=== PATIENT | female | born 1965 | race Caucasian/White ===

== ENCOUNTER → 2017-01-20 | Outpatient (CLI) | payer OTHER ==
[~2017-01-20] MED LIST: ALBU1AER9 INH; AMLO-114 PO; FURO-85 PO; LISI40TA PO; MIRT15TA PO; SYMIN160 INH; WARF7.5T4 PO
[2017-01-20 13:11] LABS: INR 1.5 (0.9-1.1); PROTHROMBIN TIME (PATIENT) 15.9 SECONDS (9.0-12.0)
== END | disposition home or self-care (01) ==
LOC: C.LABPBG 10:56
PROVIDERS: ATTEND Family Medicine
DX: I82.409 Acute embolism and thrombosis of unspecified deep veins of unspecified lower extremity (principal)

== ENCOUNTER → 2017-02-04 | Outpatient (CLI) | payer OTHER ==
[2017-02-04 18:00] LABS: ALT/SGPT 24 U/L (12-78); BLOOD UREA NITROGEN 19 mg/dl (7-18); BUN/CREATININE RATIO 25.3 (10-20); CALCIUM 8.8 mg/dl (8.5-10.1); CARBON DIOXIDE 25 mmol/L (21-32); CHLORIDE 105 mmol/L (98-107); CHOLESTEROL 222 mg/dl (0-200); CREATININE 0.76 mg/dl (0.60-1.20); GLUCOSE 82 mg/dl (70-99); POTASSIUM 4.2 mmol/L (3.5-5.1); SODIUM 139 mmol/L (136-145); TRIGLYCERIDES 75 mg/dl (0-150); VERY LOW DENSITY LIPOPROT CALC 15 mg/dl
[2017-02-04 18:03] LABS: ALB/GLOB RATIO 0.8 (0.9-2); ALKALINE PHOSPHATASE 70 U/L (45-117); AST/SGOT 17 U/L (15-37); CHOLESTEROL/HDL RATIO 2.7; HDL CHOLESTEROL 81 mg/dl; LDL CHOLESTEROL CALCULATED 126 mg/dl
== END | disposition home or self-care (01) ==
LOC: C.LABPBG 11:50
PROVIDERS: ATTEND Family Medicine
DX: I82.409 Acute embolism and thrombosis of unspecified deep veins of unspecified lower extremity (principal)

== ENCOUNTER → 2017-03-19 | Outpatient (CLI) | payer OTHER ==
--- NOTE | 2017-03-20 05:47 | PAP/PSG TECHNICIAN REPORT ---
[facility] Deployment Technician Polysomnogram Report Study name: None Report date: 03/20/2017 Study date: 03/19/2017 Referring Physician: DR. ARIANA GRUBBS Name: ADILSON COLLADO Interpreting Physician: Lucina Herrera M.D. Date of : 1965 Deployment Technician: Marianne Ceballos RPSGT. Sex: Female Age: 51 StudyType: PSG Weight: 264.55 lbs Height: 51 years, Height 5' 8" BMI: 40.22 Medications: Lisinopril 40 mg, Amlodipine 10 mg, Pantoprazole 40 mg, Vitamin D3, 2000 iu, Zoloft 200 mg, Chantix 1 mg, Trazadone 200 mg, Jantoven 11.25-18.75 day Patient History 51 yr. old female here for a possible split night sleep study. Patient complains of severe snoring, odd dreams and witnessed apneas. Patient has a history of HTN, moderate COPD, Pulmonary embolism x4, depression, GERD, and pulmonary HTN. Patients Lucas Sleepiness Scale score is 11/24. Parameters Monitored NPSG: E1-M2, E2-M1, Fp1-M2, Fp2-M1, F3-M2, F4-M2, F4-M1, C3-M2, C4-M2, C4-M1, O1-M2, O2-M2, O2-M1, T3-M2, T4-M1, P3-M2, P4-M1, CHIN1, CHIN2, HR, EKG, Legs, PFLOW, SNOR, FLOW, CFLOW, Tidal Volume, THOR, ABDO, SpO2, PLTH, CPRESS, ETCO2 Wave, ETCO2, pH Sleep Architecture Sleep Stages Time at Lights Off 9:32:15 PM STAGES Time (min.) TST (%) Time at Lights On 5:35:45 AM Wake 95.0 -- Total Recording Time (TRT) 484.00 min. N1 31.0 8 Total Sleep Period (TSP) 454.5 min. N2 292.5 75 Total Sleep Time (TST) 388.5min. N3 29.5 8 Awake Time 95.0 min. REM 35.5 9 Wake after Sleep Onset 66.0 min. Sleep Efficiency (SE) 80 % Sleep Onset Latency (EVITA) 29.0 min. Number of Stage 1 Shifts None Awakenings 28 Stage Changes 89 Number of REM periods 1 REM 35.5 9 REM Latency 372.0 min. NREM 353.0 91 Body Position Analysis Supine Right Left Side Prone Vertical Total Sleep Time (min.) 194.4 130.0 98.0 228.00 0.0 0.0 Total Sleep Time (%) 41% 33% 25% 59 0% N/A% Total Sleep Time REM (min.) 35.5 0.0 0.0 None 0.0 0.0 Total Sleep Time NREM (min.) 125.0 130.0 98.0 None 0.0 0.0 Intermittent Wake (min.) 33.9 55.5 5.6 None 0.0 0.0 Total Sleep Period (%) 38% None None None None None Arousals Myoclonus (PLM) * Events Count Index Events Count Index Spontaneous 3 0 Events Awake (PLMW) 101 63.8 Respiratory 3 0.6 Events Asleep w/ Arousal (PLMA) 8 1.2 PLM 5 1 Events Asleep w/o Arousal (PLMS) 104 16.1 Snoring 5 1 Total Asleep 112 17.3 Total 16 2 Total 213 26 Respiratory Analysis * CA OA MA CH H RERA Total Count 0 1 0 0 87 0 88 Index 0.0 0.2 0.0 0 13.4 0 13.6 Mean Duration 0.0 10.0 0.0 0.00 20.3 0.0 20.2 Longest Duration 0.0 10.0 0.0 0.00 0.0 0.0 47.1 Respiratory Event Summary Total Supine ~Supine Right Left Prone REM NREM Apneas Count 1 1 0 0 0 N/A 1 0 Index 0.2 0 0 0.0 0.0 N/A 2 0 Hypopneas (4% Desat) Count 87 41 46 19 27 N/A 21 66 Index 13.4 15.3 12 8.8 16.5 N/A 35.5 11.2 Apneas & All Hypopneas Count 88 42 46 19 27 N/A 22 66 Index 13.6 16 12 9 17 N/A 37.2 11.2 Respiratory Events (Skating [employer]+All Hyp+RERA) Count 88 42 46 19 27 N/A 22 66 Index 13.6 16 12 8.8 16.5 N/A 37.2 11.2 Respiratory Related Arousal Count 3 42 1 1 0 N/A 0 4 Index 0.6 1 0 0 0 N/A 0 1 Snoring Analysis Supine Right Left Prone REM NREM Total Snore duration 72.2 min Snores count 1,031 1,188 515 N/A 328 2,406 2,734 Snore mean duration 1.6 Sec Snores index 385 548 315 N/A 554.4 409.0 422.2 TST with snoring (%) 18.6% Desaturation Event Summary: Minimum %SpO2 Event Count Mean/Min/Max Duration(sec.) Desaturation Index % Time In Bed > 90 116 19.5 / 5.5 / 55.3 30.3 48.1 86 - 90 70 16.1 / 5.5 / 50.0 17.4 50.4 81 - 85 3 15.8 / 7.3 / 26.0 28.9 1.3 76 - 80 1 7.3 / 7.3 / 7.3 64.9 0.2 71 - 75 0 N/A 0.0 0.0 66 - 70 0 N/A 0.0 0.0 61 - 65 0 N/A 0.0 0.0 56 - 60 0 N/A 0.0 0.0 51 - 55 0 N/A 0.0 0.0 < 50 0 N/A 0.0 0.0 Total REM NREM Awake <50% 0.0 min. 0.0 min. 0.0 min. 0.0 min. 51 - 60% 0.0 min. 0.0 min. 0.0 min. 0.0 min. 61 - 70% 0.0 min. 0.0 min. 0.0 min. 0.0 min. 71 - 80% 0.9 min. 0.9 min. 0.0 min. 0.0 min. 81 - 90% 247.3 min. 26.6 min. 198.6 min. 22.1 min. 91 - 100% 229.8 min. 7.9 min. 154.4 min. 67.4 min. Average 90 88 90 92 Minimum SpO2 76 76 84 82 Desaturation Event Index 17.9 47.3 14.4 20.8 # Desat. Events below 89% 108 28 61 19 Time(%) with Saturation below 89% 8.7 3.3 4.4 1.0 Time(min.) with Saturation below 89% 41.8 15.7 21.2 5.0 Time (mins) REM (mins) NREM (mins) % of TST SpO2 Below 90% 113 28 N85 28.2 SpO2 Below 88% 26 0 0 4 Heart Rate Analysis Min (bpm) Max (bpm) Average (bpm) Awake 41 113 70 NREM 54 91 65 REM 61 84 70 Overall 54 91 65 Supplemental O2 Values Minimum O2 level: None Value Start Time End Time Deployment Technician Comments MS. Collado slept in the right, left, and supine positions. Cardiac arrhythmia and PLMs noted. No bruxism noted. Snoring was noted and scored as a 4 on a scale of 0 through 5. (0=no snoring, 5=snoring loud enough to be heard through a closed door or down the steel way) MS. Collado awoke to use the restroom once during the night. MS. Collado stated, that was a normal night. The final report will be interpreted and signed by a sleep physician. The completed physician report will then be placed in the patient medical record. Therapy (cm H2O) 0 TIB (min.) 483.5 TST (min.) 388.5 Sleep Onset (min.) 29.0 REM Onset From Sleep (min.) 372.0 Sleep Efficiency % 80 Wakefulness (%) 20 Wakefulness (min.) 95.0 NREM 1 (%) 8 NREM 1 (min.) 31.0 NREM 2 (%) 75 NREM 2 (min.) 292.5 NREM 3 (%) 8 NREM 3 (min.) 29.5 REM (%) 9 REM (min.) 35.5 # Arousals 16 Arousal Index 2 # Snore 2,734 Snore Index 422.2 AHI 13.6 AHI Supine 16 AHI Non-Supine 12 NREM AHI 11.2 REM AHI 37.2 RDI 13.6 # Obstructive Apnea 1 # Central Apnea 0 # Mixed Apnea 0 # Hypopneas 87 RERAs 0 Total Respiratory Events 99 Time Below SpO2 89% (min.) 36.8 Mean NREM SpO2 (%) 90 Mean REM SpO2 (%) 88 Mean Sleep SpO2 (%) 90 Min NREM SpO2 (%) 84 Min REM SpO2 (%) 76 Position Supine (min.) 194.4 Position Non-supine (min.) 228.0 LM Index Sleep 17.3 LM Index NREM 18.7 LM Index REM 3.4 Mean Heart Rate (bpm) 65 Min Heart Rate (bpm) 54
--- NOTE | 2017-04-16 08:46 | POLYSOMNOGRAPH REPORT ---
REFERRING PHYSICIAN: Víctor Thakur DO INTERPRETING PHYSICIAN: Lucina Herrera MD HAND PRINTED CIRCUIT BOARD ASSEMBLER: Marianne Ceballos Ms. Collado is a 51-year-old female, sent for a possible split night sleep study. She complains of severe snoring, witnessed apneas and weird dreams. She has a history of moderate COPD, pulmonary embolism x4, hypertension, depression, GERD and pulmonary hypertension. Her Romulus Sleepiness Scale score on the evening of this study is 11. BMI is 40.22. Following the technical and digital specifications of the [place] [employer] (AASM) a standard diagnostic polysomnogram was performed monitoring EEG, EOG, EMG (chin and leg deviations), oxygen saturation, body position, digital video, respiratory effort and airflow. The sleep Stage and event scoring was based on the AASM Manual for the Scoring of Sleep and Associated Events 2007 edition. Apneas are defined as a drop in the peak thermal sensor excursion by >90% of baseline for at least 10 seconds. Hypopneas were scored using the 4% oxygen desaturation rule (4A-Medicare) and a decrease in the nasal pressure excursions by >30% of baseline for at least 10 seconds. Respiratory effort-related arousal (RERA's) is defined as a sequence of breaths lasting at least 10 seconds characterized by increasing respiratory effort or flattening of the nasal pressure waveform leading to an arousal from sleep when the sequence of breaths does not meet criteria for an apnea or hypopnea. Apnea Hypopnea index (AHI) is defined as the number of apneas and hypopneas occurring in an hour of sleep. Respiratory disturbance index (RDI) is defined as the number of apneas, hypopneas, and RERA's occurring in an hour of sleep. Ms. Collado's total sleep period time was 454.5 minutes. Total sleep time was 388.5 minutes. Sleep efficiency is 80%. Latency to sleep onset was 29 minutes with wake after sleep onset of 66 minutes. Total non-REM sleep time was 353 minutes. She spent 8% of that time in N1 sleep, 75% in N2 sleep and 8% in N3 sleep. REM latency was 372 minutes. Total REM sleep time was 35.5 minutes or 9% of total sleep time. There were 16 cortical arousals from sleep. Three of these arousals were spontaneous, 3 were due to respiratory events, 5 due to periodic limb movements of sleep and 5 were due to snoring. There were 112 periodic limb movements noted on this test. Limb movement index was 17.3. Limb movement with arousal index was 1.2. There was no central, one obstructive and no mixed apneas on this test. There were 87 hypopneas and no RERA. Apnea-hypopnea index was 13.6, consistent with mild sleep apnea. Supine AHI was 16 and REM AHI was 37.2. There were 2734 snoring events recorded. Total sleep time with snoring was 18.6%. Mean saturation was 90% with desaturations with respiratory events of 76%. Saturations were less than 89% for 41.8 minutes of recorded time. There was no cardiac ectopy noted on this study. Heart rates ranged from a low of 54 beats per minute to a high of 91 beats per minute. IMPRESSION AND PLAN: A 51-year-old female, with evidence of mild sleep apnea, worse in supine sleep than REM sleep as well significant nocturnal hypoxemia and loud snoring on this test. 1. This patient would likely benefit from positive airway pressure therapy. She should return to the sleep lab for a full night titration and then based on those results be started on equipment at home. A download from her machine should be reviewed in one month; both to check compliance as well as AHI and further pressure adjustments can occur at that time. 2. Should this patient be unwilling or unable to tolerate CPAP therapy, she should be referred to the ear, nose and throat or oral surgery/dental medicine (if appropriate) to discuss alternative treatments for sleep disorder breathing.
== END | disposition home or self-care (01) ==
LOC: C.NEUR 21:00
PROVIDERS: ATTEND Internal Medicine Cardiovascular Disease
DX: G47.30 Sleep apnea, unspecified (principal); G47.36 Sleep related hypoventilation in conditions classified elsewhere; R06.83 Snoring; I10 Essential (primary) hypertension; Z68.41 Body mass index [BMI] 40.0-44.9, adult; I26.99 Other pulmonary embolism without acute cor pulmonale

== ENCOUNTER → 2017-06-19 | Outpatient (CLI) | payer OTHER ==
--- NOTE | 2017-06-19 15:08 | DIAGNOSTIC IMAGING REPORT ---
LUMBAR SPINE MIN 4 VIEWS HISTORY: Pain LOWER BACK PAIN RIGHT KNEE PAIN COMPARISON: None. FINDINGS: There is no fracture. Moderate degenerative disc change throughout the entire lumbar region. Mild positional scoliosis. No evidence for compression deformity. Inferior vena caval filter in position at the L 3. L4 level. Nonobstructive bowel pattern. IMPRESSION: Moderate degenerative change. Scoliosis. No acute process. The above report was generated using voice recognition software. It may contain grammatical, syntax or spelling errors. Electronically signed by: Isaac Garcia M.D. 06/19/2017 3:07 PM Dictated Date/Time: 06/19/2017 3:06 PM
--- NOTE | 2017-06-19 15:08 | DIAGNOSTIC IMAGING REPORT ---
RIGHT KNEE RADIOGRAPHS WITH COMPARISON STANDING AP RADIOGRAPH OF THE LEFT KNEE CLINICAL HISTORY: Right knee pain. COMPARISON: Left knee radiographs November 16, 2015. FINDINGS: Comparison standing AP radiograph of the left knee demonstrates anatomic alignment of the total left knee arthroplasty. No periprosthetic fracture or lucency. Positioning on the tunnel view is suboptimal. There is moderate medial compartment joint space narrowing within the right knee. There is no fracture or joint effusion. There is no suspicious osseous lesion. There is a questionable 1.2 cm subchondral lucency projecting over the tibial spines. IMPRESSION: 1. No acute fracture or joint effusion of the right knee. 2. Moderate medial compartment joint space narrowing of the knee. 3. Questionable 1.2 cm subchondral lucency projecting over the tibial spines. Electronically signed by: Niall Hinton M.D. 06/19/2017 3:07 PM Dictated Date/Time: 06/19/2017 3:04 PM
== END | disposition home or self-care (01) ==
LOC: C.RDSM 13:46
PROVIDERS: ATTEND Family Medicine
DX: M25.561 Pain in right knee (principal); M47.816 Spondylosis without myelopathy or radiculopathy, lumbar region; M41.9 Scoliosis, unspecified

== ENCOUNTER → 2017-09-22 | Outpatient (CLI) | payer OTHER | END | disposition home or self-care (01) | LOC: C.PAPS 10:06 | PROVIDERS: ATTEND Obstetrics & Gynecology | DX: Z12.4 Encounter for screening for malignant neoplasm of cervix (principal) ==

== ENCOUNTER 2017-12-02 12:15 | Inpatient (IN) | payer OTHER ==
[~2017-12-02] VITALS: Ht 167.6 cm; Wt 130.2 kg
[2017-12-02 13:15] LABS: BASO % 0.8 %; BASO ABS # 0.05 K/uL (0-0.2); EOS % 2.3 %; EOS ABS # 0.15 K/uL (0-0.5); HEMATOCRIT 31.2 % (37-47); HEMOGLOBIN 9.2 g/dL (12.0-16.0); IG# 0.02 K/uL (0.00-0.02); LYMPH % 28.4 %; LYMPH ABS # 1.88 K/uL (1.2-3.4); MEAN CELL VOLUME 67.8 fL (80-100); MEAN CORPUSCULAR HGB CONC 29.5 g/dl (32-36); MEAN PLATELET VOLUME 9.3 fL (7.4-10.4); MONO % 5.7 %; MONO ABS # 0.38 K/uL (0.11-0.59); NEUT % 62.5 %; NEUT ABS # 4.15 K/uL (1.4-6.5); PLATELET COUNT 255 K/uL (130-400); RED CELL DISTRIBUTION WIDTH CV 20.8 % (11.5-14.5); RED CELL DISTRIBUTION WIDTH SD 51.1 fL (36.4-46.3); WHITE BLOOD COUNT 6.63 K/uL (4.8-10.8)
[2017-12-02 13:28] LABS: PTT PATIENT 37.9 SECONDS (21.0-31.0)
[2017-12-02 13:42] LABS: CALCIUM 8.7 mg/dl (8.5-10.1); CREATININE 0.84 mg/dl (0.60-1.20)
--- NOTE | 2017-12-02 13:42 | DIAGNOSTIC IMAGING REPORT ---
TWO VIEW CHEST CLINICAL HISTORY: Atypical chest pain. FINDINGS: PA and lateral chest radiographs are compared to chest x-ray and chest CT dated 09/19/2015. The heart is top mildly enlarged. The mediastinal contour is within normal limits. Small right pleural effusion is noted. The lungs and pleural spaces are otherwise clear. There is no pneumothorax. The bony thorax appears intact. IMPRESSION: 1. Mild cardiomegaly without radiographic evidence of congestive failure. 2. A small right pleural effusion is noted. Electronically signed by: Soto Barrett M.D. 12/02/2017 1:40 PM Dictated Date/Time: 12/02/2017 1:39 PM
--- NOTE | 2017-12-02 13:43 | DIAGNOSTIC IMAGING REPORT ---
R KNEE 1 OR 2 VIEWS ROUTINE HISTORY: 51 years-old Female eval for fx acute right knee pain status post recent injury COMPARISON: Right knee radiographs 06/19/2017 TECHNIQUE: 2 views of the right knee FINDINGS: Previously discussed subcortical lucency noted beneath the medial tibial spine is again seen suggesting a subcortical cyst. Mild lateral compartment with moderate medial and mild to moderate patellofemoral compartment osteoarthritis. Small joint effusion. No acute fracture, subluxation or osteochondral defect identified. IMPRESSION: 1. Small joint effusion without acute fracture or subluxation. 2. Tricompartmental osteoarthritis, most pronounced within the medial compartment where there is moderate disease. The above report was generated using voice recognition software. It may contain grammatical, syntax or spelling errors. Electronically signed by: Mark Caldera M.D. 12/02/2017 1:42 PM Dictated Date/Time: 12/02/2017 1:39 PM
--- NOTE | 2017-12-02 13:49 | DIAGNOSTIC IMAGING REPORT ---
THORACIC SPINE 3 VIEWS ROUTINE HISTORY: Trauma. Pain. eval fro fx COMPARISON: None. FINDINGS: There is no fracture. No subluxation. Moderate degenerative disc changes throughout. No evidence for a acute compression deformity. IMPRESSION: 1. No acute bony abnormality. 2. Mild scoliosis. 3. Mild degenerative disc change. The above report was generated using voice recognition software. It may contain grammatical, syntax or spelling errors. Electronically signed by: Isaac Garcia M.D. 12/02/2017 1:47 PM Dictated Date/Time: 12/02/2017 1:47 PM
--- NOTE | 2017-12-02 13:51 | DIAGNOSTIC IMAGING REPORT ---
LUMBAR SPINE 5 VIEWS CLINICAL HISTORY: Fall several weeks ago. Chronic low back pain. FINDINGS: Five views of the lumbar spine are compared to study dated 06/19/2017. The skeletal structures are osteopenic. There is no radiographic evidence of fracture or malalignment. Vertebral body height and alignment are maintained at the lumbar spine. The transverse and spinous processes appear intact. Anterior osteophytes are seen throughout. Mild facet arthropathy is noted in the lower lumbar region. There is no evidence of spondylolysis. There is mild disc space narrowing at L2-L3 with associated endplate sclerosis. Mild disc space narrowing is seen throughout the remainder of the lumbar spine. The visualized bony pelvis appears intact. Mild sclerotic change is noted in the sacroiliac joints. An IVC filter is in place. There is no evidence of bowel obstruction. IMPRESSION: 1. No acute bony abnormality seen involving the lumbar spine. 2. Osteopenia and spondylotic change as above. Dictated: 12/02/2017 1:40 PM Transcribed: 12/02/2017 1:51 PM POLO_Vladislav Electronically signed by: Soto Barrett M.D. 12/02/2017 2:10 PM Dictated Date/Time: 12/02/2017 1:40 PM
--- NOTE | 2017-12-02 14:01 | DIAGNOSTIC IMAGING REPORT ---
ULTRASOUND R VENOUS DOPP LOWER EXT UNILAT CLINICAL HISTORY: Right leg pain and swelling COMPARISON STUDY: No previous studies for comparison. FINDINGS: No thrombus is visualized in the common femoral or superficial femoral vein. There is fibrin stranding within the popliteal vein. This is felt to be chronic. There is age-indeterminate thrombus involving one of the paired peroneal veins. The anterior tibial and posterior tibial veins appear patent. IMPRESSION: 1. Age-indeterminate calf thrombus involving one of 2 paired peroneal veins 2. Chronic fibrin stranding within the popliteal vein Electronically signed by: Robin Dodson M.D. 12/02/2017 2:00 PM Dictated Date/Time: 12/02/2017 1:59 PM
[2017-12-02] MEDS ORDERED: VNTHFA/IN INH (14:33)
[2017-12-02] MEDS ORDERED: BUSP15TA70 PO (14:33)
[2017-12-02] MEDS ORDERED: TRAZ100T29 PO (14:33)
[2017-12-02] MEDS ORDERED: SERT-234 PO (14:33)
[2017-12-02] MEDS ORDERED: LISI40TA PO (14:35)
[2017-12-02] MEDS ORDERED: FURO-85 PO (14:35)
[2017-12-02] MEDS ORDERED: OPTIRAY 320 IV PRN (14:45)
[2017-12-02] MEDS ORDERED: MAGNESIUM HYDROXIDE SUSP 30 ML UDC PO PRN (15:30)
[2017-12-02] MEDS: ALBUTEROL HFA 8 GM INHALER INH SCH ×2 (15:30→21:39)
[2017-12-02] MEDS ORDERED: ACETAMINOPHEN 325 MG TAB PO PRN (15:30)
[2017-12-02] MEDS ORDERED: FUROSEMIDE 20 MG TAB PO PRN (15:30)
[2017-12-02] MEDS ORDERED: ALUMINUM/MAGNESIUM/SIMETH (MAALOX MAX) 30 ML UDC PO PRN (15:30)
[2017-12-02] MEDS ORDERED: ONDANSETRON INJ 2 MG/ML 2 ML VIAL IV PRN (15:30)
--- NOTE | 2017-12-02 15:55 | DIAGNOSTIC IMAGING REPORT ---
(CHEST FOR PE) ANGIO WITH CT DOSE: 660.59 mGy.cm HISTORY: 51 years-old Female presents with acute difficulty breathing TECHNIQUE: Multiple CTA images of the chest were obtained after the intravenous administration of ml Optiray 320. Coronal and sagittal MIPS were obtained from the axial data set and were submitted for review. A dose lowering technique was utilized adhering to the principles of ALARA. COMPARISON: CTA of the chest 09/19/2015, venous Doppler study 12/02/2017. FINDINGS: CTA: Moderate multichamber cardiac enlargement. No pericardial effusion. Thoracic aorta is not well opacified. There is mild fusiform dilation of the ascending thoracic aorta beginning distal to the sinotubular junction, 4.2 x 4.3 cm in AP and transverse dimension, previously 4.2 x 4.2 cm on study dated 09/19/2015. No dissection identified. No significant atherosclerotic plaquing. The pulmonary arterial tree is opacified to level of the segmental branches. There are several linear peripheral nonocclusive filling defects noted within the pulmonary arterial tree involving segmental branches of the right lower lobe as seen on image 78 series 4, segmental branches of the right upper lobe seen on image 162 series 4 and also within segmental branches of the left lower lobe as seen on image 98 series 4. There may also be subtle filling defects noted within segmental branches of the superior segment lingula as seen on image [address] CHEST: Heterogeneous multinodular thyroid with largest nodule measuring 1.5 cm on the left. No definite pathologic adenopathy identified. Subsegmental linear consolidative and groundglass bibasilar opacities suggest atelectasis. Mild upper lobe predominant centrilobular emphysema. No pneumothorax or pleural effusion. No definite pulmonary infarction identified. No acute abnormality of the imaged upper abdomen. Soft tissues are unremarkable. Bones appear intact. Multilevel endplate degenerative changes. IMPRESSION: 1. Multiple small linear nonocclusive pulmonary emboli involve segmental branches bilaterally as above. 2. Mild emphysema. 3. Mild subsegmental bibasilar atelectasis without large pulmonary infarction identified. 4. Cardiomegaly with fusiform dilation of the ascending thoracic aorta beginning distal to the sinotubular junction, 4.2 x 4.3 cm. The above report was generated using voice recognition software. It may contain grammatical, syntax or spelling errors. Electronically signed by: Mark Caldera M.D. 12/02/2017 3:54 PM Dictated Date/Time: 12/02/2017 3:46 PM
--- NOTE | 2017-12-02 16:02 | History and Physical ---
History & Physical Date & Time of Service: Dec 02, 2017 at 15:43 Chief Complaint: Trouble Breathing,Leg Pain Primary Care Physician: Zenobia Ogden M.D. History of Present Illness Source: patient Ms. Collado is a 51 y/o female with PMHx of Factor V Leiden, Numerous DVTs, Multiple PEs, S/P IVC Filter, HTN, COPD, DJD of Multiple Sites who presents to the ED c/o persistent RLE pain, worsening edema, and progressive GLASER x 1 1/2 months. Patient states that approx 1 1/2-2 months ago she sustained a fall with resultant twisted ankle and falling on her R hip and leg. She does report chronic knee pain due to DJD and states she is due to have her R knee replaced. However, after the fall she states the quality of her pain seemed to be different as her pain is more jagging and aching. She states the pain radiates from behind the R knee and up the thigh but cannot delineate the path. She does not seem to be bothered by hip pain. She does state her mid-low back is bothersome mostly with standing but denies leg weakness, saddle paresthesias, or loss of bowel/bladder and this too worsened since her fall. She has had multiple DVTs and PEs due to her Factor V and previously followed with Dr. Kevin. She reports she is normally therapeutic if not supratherapeutic on warfarin. INRs reviewed showing only one subtherapeutic at 1.9 in 2016. She reports that she has noticed progressive GLASER and central CP that radiates to the collarbone and shoulder. States this pain feels like the sensation after laparoscopic surgery due to inflation. She states this chest pain is intermittent and comes on sporadically but does worsen with exertion. She reports she does have pleuritic CP with pain "deep in the chest" just under her breasts b/l. She does report stress testing x 1 year ago and was told she had a valve that would not completely close but could not give further details. States she also has an intermittent arrhythmia discovered on Holter but could not give details. She is followed by Dr. Thakur. She also states she notices the chest pain changes in consistency with eating. She believes she does have some GERD/GI components and feels that her food sometimes gets stuck in her throat. She has had issues with nausea and vomiting frequently after eating x 3 + weeks. She still has her GB. She does feel she retains fluids mostly in her abdomen and legs. Denies known liver disease. She states the RLE is bigger than the LLE but appears rather equal and supports more of a lymphedema picture. She is currently therapeutic on Coumadin at 2.0. RLE with age indeterminate DVT with evidence of also chronic findigs with no prior studies to compare. Even though she has a IVC filter, therapeutic on Coumadin, and unremarkable D-Dimer. CT chest reveals b/l PEs which appear more extensive compared to imaging of 2015. Past Medical/Surgical History Medical Problems: (1) DVT (deep venous thrombosis) Status: Resolved (2) Factor 5 Leiden mutation, heterozygous Status: Chronic (3) Factor 5 Leiden mutation, heterozygous Status: Chronic (4) Hypertension Status: Chronic (5) Pulmonary embolism Status: Resolved Family History Diabetes mellitus Factor V Leiden Hypertension Social History Smoking Status: Current Every Day Smoker Alcohol Use: socially Drug Use: none Marital Status: Housing status: lives with significant other Allergies Coded Allergies: No Known Allergies (Unverified , 12/02/17) Home Medications Scheduled Albuterol Hfa (Ventolin Hfa), 2-4 PUFFS INH Q6H Buspirone Hcl (Buspar), 1 TAB PO BID Lisinopril (Zestril), 40 MG PO DAILY Sertraline (Zoloft), 200 MG PO DAILY Trazodone Hcl (Trazodone), 100 MG PO HS Warfarin Sod (Jantoven), 11.25-18.75 MG PO UD Scheduled PRN Furosemide (Lasix), 20 MG PO for FLUID RETENTION Review of Systems Constitutional: No fever, No chills ENT: + trouble swallowing ("feels like a lump in my throat"), No sore throat Respiratory: + cough, + sputum, + dyspnea on exertion, No dyspnea at rest Cardiovascular: + chest pain (intermittent with radiation into L shoulder) Abdomen: + pain (intermittent RUQ), + nausea (frequently with eating), + vomiting (frequently with eating), No diarrhea, No constipation, No GI bleeding Musculoskeletal: + joint pain (chronic low back pain), + swelling (R>L swelling of lower extremities), + problem reported (pain behind right knee extending upwards into thigh - feels diffusely and cant identify a specific tract it follows) Genitourinary - Female: No dysuria Neurologic: No numbness/tingling Hematologic / Lymphatic: No abnormal bleeding/bruising Integumentary: No rash Physical Exam Vital Signs Date Time Temp Pulse Resp B/P (MAP) Pulse Ox O2 Delivery O2 Flow Rate FiO2 12/02/17 14:25 66 12/02/17 14:25 96 Room Air 12/02/17 14:15 79 16 177/105 96 Room Air 12/02/17 12:23 36.5 69 20 199/108 94 Room Air General Appearance: WD/WN, no apparent distress, + obese Head: normocephalic, atraumatic Eyes: sclerae normal ENT: hearing grossly normal Neck: supple, no JVD, trachea midline Respiratory/Chest: lungs clear, no respiratory distress, no accessory muscle use, + decreased breath sounds (bases b/l) Cardiovascular: regular rate, rhythm, no gallop, no murmur Abdomen/GI: normal bowel sounds, soft, + tenderness (with deep palpation of RUQ (negative bustillos's sign) and epigastric region) Back: no CVA tenderness Extremities/Musculoskelatal: no calf tenderness, normal capillary refill, + swelling (appears lymphedema-like and non-pitting - reporting R > L however appears largely similar in comparison; surgical incision to L knee well- approximated and well healed) Neurologic/Psych: alert, oriented x 3 Skin: normal color, warm/dry Diagnostics Laboratory Results Results Past 24 Hours Test 12/02/17 12:55 12/02/17 12:59 Range/Units White Blood Count 6.63 4.8-10.8 K/uL Red Blood Count 4.60 4.2-5.4 M/uL Hemoglobin 9.2 12.0-16.0 g/dL Hematocrit 31.2 37-47 % Mean Corpuscular Volume 67.8 80-100 fL Mean Corpuscular Hemoglobin 20.0 25-34 pg Mean Corpuscular Hemoglobin Concent 29.5 32-36 g/dl Platelet Count 255 130-400 K/uL Mean Platelet Volume 9.3 7.4-10.4 fL Neutrophils (%) (Auto) 62.5 % Lymphocytes (%) (Auto) 28.4 % Monocytes (%) (Auto) 5.7 % Eosinophils (%) (Auto) 2.3 % Basophils (%) (Auto) 0.8 % Neutrophils # (Auto) 4.15 1.4-6.5 K/uL Lymphocytes # (Auto) 1.88 1.2-3.4 K/uL Monocytes # (Auto) 0.38 0.11-0.59 K/uL Eosinophils # (Auto) 0.15 0-0.5 K/uL Basophils # (Auto) 0.05 0-0.2 K/uL RDW Standard Deviation 51.1 36.4-46.3 fL RDW Coefficient of Variation 20.8 11.5-14.5 % Immature Granulocyte % (Auto) 0.3 % Immature Granulocyte # (Auto) 0.02 0.00-0.02 K/uL Hypochromasia PRESENT Anisocytosis PRESENT Microcytosis PRESENT Prothrombin Time 20.6 9.0-12.0 SECONDS Prothromb Time International Ratio 2.0 0.9-1.1 Activated Partial Thromboplast Time 37.9 21.0-31.0 SECONDS Partial Thromboplastin Ratio 1.5 Sodium Level 135 136-145 mmol/L Potassium Level 4.0 3.5-5.1 mmol/L Chloride Level 102 98-107 mmol/L Carbon Dioxide Level 28 21-32 mmol/L Anion Gap 5.0 3-11 mmol/L Blood Urea Nitrogen 21 7-18 mg/dl Creatinine 0.84 0.60-1.20 mg/dl Est Creatinine Clear Calc Drug Dose 99.0 ml/min Estimated GFR () 93.3 Estimated GFR (Non- 80.5 BUN/Creatinine Ratio 24.9 10-20 Random Glucose 90 70-99 mg/dl Calcium Level 8.7 8.5-10.1 mg/dl Bedside D-Dimer 73 0-450 ng/mlFEU Bedside Troponin I < 0.030 0-0.045 ng/ml Diagnostic Radiology ULTRASOUND R VENOUS DOPP LOWER EXT UNILAT FINDINGS: No thrombus is visualized in the common femoral or superficial femoral vein. There is fibrin stranding within the popliteal vein. This is felt to be chronic. There is age-indeterminate thrombus involving one of the paired peroneal veins. The anterior tibial and posterior tibial veins appear patent. IMPRESSION: 1. Age-indeterminate calf thrombus involving one of 2 paired peroneal veins 2. Chronic fibrin stranding within the popliteal vein R KNEE 1 OR 2 VIEWS ROUTINE FINDINGS: Previously discussed subcortical lucency noted beneath the medial tibial spine is again seen suggesting a subcortical cyst. Mild lateral compartment with moderate medial and mild to moderate patellofemoral compartment osteoarthritis. Small joint effusion. No acute fracture, subluxation or osteochondral defect identified. IMPRESSION: 1. Small joint effusion without acute fracture or subluxation. 2. Tricompartmental osteoarthritis, most pronounced within the medial compartment where there is moderate disease. TWO VIEW CHEST FINDINGS: PA and lateral chest radiographs are compared to chest x-ray and chest CT dated 09/19/2015. The heart is top mildly enlarged. The mediastinal contour is within normal limits. Small right pleural effusion is noted. The lungs and pleural spaces are otherwise clear. There is no pneumothorax. The bony thorax appears intact. IMPRESSION: 1. Mild cardiomegaly without radiographic evidence of congestive failure. 2. A small right pleural effusion is noted. (CHEST FOR PE) ANGIO WITH FINDINGS: CTA: Moderate multichamber cardiac enlargement. No pericardial effusion. Thoracic aorta is not well opacified. There is mild fusiform dilation of the ascending thoracic aorta beginning distal to the sinotubular junction, 4.2 x 4.3 cm in AP and transverse dimension, previously 4.2 x 4.2 cm on study dated 09/19/2015. No dissection identified. No significant atherosclerotic plaquing. The pulmonary arterial tree is opacified to level of the segmental branches. There are several linear peripheral nonocclusive filling defects noted within the pulmonary arterial tree involving segmental branches of the right lower lobe as seen on image 78 series 4, segmental branches of the right upper lobe seen on image 162 series 4 and also within segmental branches of the left lower lobe as seen on image 98 series 4. There may also be subtle filling defects noted within segmental branches of the superior segment lingula as seen on image [address] CHEST: Heterogeneous multinodular thyroid with largest nodule measuring 1.5 cm on the left. No definite pathologic adenopathy identified. Subsegmental linear consolidative and groundglass bibasilar opacities suggest atelectasis. Mild upper lobe predominant centrilobular emphysema. No pneumothorax or pleural effusion. No definite pulmonary infarction identified. No acute abnormality of the imaged upper abdomen. Soft tissues are unremarkable. Bones appear intact. Multilevel endplate degenerative changes. IMPRESSION: 1. Multiple small linear nonocclusive pulmonary emboli involve segmental branches bilaterally as above. 2. Mild emphysema. 3. Mild subsegmental bibasilar atelectasis without large pulmonary infarction identified. 4. Cardiomegaly with fusiform dilation of the ascending thoracic aorta beginning distal to the sinotubular junction, 4.2 x 4.3 cm. EKG Poor data quality, interpretation may be adversely affected Normal sinus rhythm Normal ECG When compared with ECG of 19-SEP-2015 14:39, No significant change was found Confirmed by Celesitne Zavala ([id number]) on 12/02/2017 1:58:22 PM Impression Assessment and Plan Ms. Collado is a 51 y/o female with PMHx of Factor V Leiden, Numerous DVTs, Multiple PEs, S/P IVC Filter, HTN, COPD, DJD of Multiple Sites who presents to the ED c/o persistent RLE pain, worsening edema, and progressive GLASER x 1 1/2 months. B/L Pulmonary Embolism and Age Indeterminant RLE DVT - Possible Coumadin Failure - Complicated by Factor V Leiden - Patient has had multiple DVTs and PEs due to her factor V Leiden; she is largely therapeutic on Coumadin with only one subtherapeutic reading at 1.9 in September 2017; she does report chronic joint pain did notice her right knee pain appear different after her fall approximately 2 months ago - No RLE ultrasound for comparison but evidence of chronic findings of DVT and age indeterminate DVT - She does have IVC filter and d-dimer was largely unremarkable - however CT reveals bilateral pulmonary embolism with comparison to image in 2014 that shows progression - patient does report pleuritic chest pain and GLASER - We'll hold Coumadin and start heparin drip - will consult hematology and appreciate further recommendations for long-term anticoagulation - Obtain updated echo - Ventolin 2 puffs Q6H Chest Pain: PE vs GERD versus Musculoskeletal vs ACS versus Multifactorial - Admit to telemetry for cardiac monitoring and trend troponins - Reporting worsening of chest pain with eating and associated occasional RUQ abdominal pain, nausea, and frequent vomiting with meals - ultrasound reveals mild hepatic steatosis but no gallbladder abnormalities - Had stress test approximately one year ago performed by Dr. Thakur - she reports issues with a valve not fully closing - could consider outpatient stress testing - She reports being on an acid reducing medication that starts with P but is unsure of the medication but states it's 20 mg in the a.m. - will incorporate Pepcid 20 mg daily as she states acid reducers seem to help her chest pain HTN and Lower Extremity Edema (Likely Lymphedema): Hypertensive - Patient was previously on Norvasc 10 mg daily - which may have contributed to her lower extremity edema - however lower extremity edema lymphedema - Lasix 20 mg daily as needed for fluid retention and Lisinopril 40 mg daily Anxiety/Depression: - BuSpar 15 mg BID, Zoloft 200 mg daily, and trazodone 100 mg daily DVT Prophylaxis: Heparin drip Code Status: FULL RESUSCITATION Disposition: - Possible need for alternative long-term anticoagulation I personally interviewed and examined the patient. I agree with history of present illness and physical exam mentioned above, I also performed my own history taking and examination. Past medical history and review of system has been obtained by myself I reviewed all pertinent labs and studies Reviewed current medications I discussed and formulated of the assessment and plan mentioned above. Please refer to the Summary mentioned below. 51-year-old female with coagulopathy secondary to factor V Leiden, due to multiple DVTs and PEs in the past recent has IVC filter and chronically on Coumadin. Presented to the hospital with chest pain, right lower extremity pain, ultrasound lower extremity and CTA revealed DVT/multiple small referral PEs Appears that patient either failed Coumadin, or Coumadin became subtherapeutic when the patient developed all these blood clots, as per patient the pain started about 2 months ago. Currently started on heparin drip, INR is 2, will consult food service specialist to discuss with patient all options. General Appearance: not in acute distress Eyes: normal Sclerae, extraocular muscle intact ENT: hearing grossly normal Neck: supple Respiratory/Chest: normal air entry bilateral ,no respiratory distress, no accessory muscle use Cardiovascular: regular rate, rhythm, + systolic murmur Abdomen: non tender, soft, no masses Extremities: no edema Neurologic/Psychiatric: Awake alert oriented times place and person moves all extremities sensation intact cranial nerves II-12 appear to be intact Skin: normal color, warm/dry, no rash Sky Cox MD, [facility] Level of Care Telemetry Resuscitation Status FULL RESUSCITATION VTE Prophylaxis VTE Risk Assessment Done? Y/N: Yes Risk Level: Moderate Given or contraindicated: Warfarin (Coumadin)
[2017-12-02] MEDS ORDERED: IV FLUIDS COMPLETED PRN (16:30)
[2017-12-02] MEDS ORDERED: OXYCODONE/ACETAMINOPHEN 5-325 TAB PO STA (16:33)
[2017-12-02] MEDS ORDERED: HEPARIN 25000 UNIT/500 ML D5W ONE (17:12)
[2017-12-02] MEDS: OXYCODONE/ACETAMINOPHEN 5-325 TAB PO PRN (17:50)
--- NOTE | 2017-12-02 18:05 | DIAGNOSTIC IMAGING REPORT ---
GALLBLADDER-ABD LIMITED CLINICAL HISTORY: 51 years-old Female presenting with RUQ abd pain - worse with eating. TECHNIQUE: Real-time grayscale and limited color Doppler ultrasound imaging of the abdomen limited to the right upper quadrant was performed. COMPARISON: CT from 09/19/2015. FINDINGS: Pancreas: Visualized portions of the pancreatic head and body normal. Liver: Mildly hyperechogenic parenchyma, although the right hemidiaphragm remains visible, likely indicating mild steatosis. The liver measures 19.9 cm in maximal sagittal dimension. No sonographic evidence of hepatic mass. Main portal vein patent with normal directional flow. Biliary: No intrahepatic biliary ductal dilatation. Common bile duct measures up to 4 mm in diameter. Gallbladder: No evidence of gallstones, gallbladder wall thickening, gallbladder distention, or pericholecystic fluid or inflammatory change. Right kidney: Normal in appearance. No hydronephrosis. Ascites: None. IMPRESSION: 1. Mild hepatic steatosis. 2. No cholelithiasis or biliary ductal dilatation. Electronically signed by: Jimmy Pérez M.D. 12/02/2017 6:03 PM Dictated Date/Time: 12/02/2017 6:02 PM
[2017-12-02] MEDS ORDERED: HydrALAZINE HCL 20 MG/ML VIAL IV. PRN (18:15)
[2017-12-02 18:30] VITALS: BP 147/95; PULSE 65; TEMP 36.5; O2SAT 96; Ht 167.6 cm; Wt 130.2 kg
--- NOTE | 2017-12-02 19:07 | EMERGENCY ROOM VISIT NOTE ---
History Report prepared by Bryant: Erika Roldan Under the Supervision of: Dr. Juan Shah M.D. First contact with patient: 12:27 Chief Complaint: SHORTNESS OF BREATH Stated Complaint: TROUBLE BREATHING,LEG PAIN History of Present Illness The patient is a 51 year old female who presents to the Emergency Room with complaints of persistent right leg pain starting 1.5 months ago. The patient was sent to the ED after seeing her PCP today. The patient twisted her foot and fell 1.5 months ago onto her right hip and leg. The patient reports pain behind her right knee which radiates up the back of her leg. She describes the pain as jagging and aching. She denies any low back pain or hip pain. She has had some mid back pain when standing and walking which she has had for a few months. This pain worsened after she fell 1.5 months ago. She reports swelling to both legs which has worsened recently. She has had this leg swelling intermittently for several months. The swelling is worse in her right leg. She has had intermittent mid chest pain over the past year which has worsened over the past few months. She describes the chest pain as a heaviness. The pain goes into her left collarbone and left shoulder at times. The chest pain worsens with exertion. She is also having SOB with her chest pain. She had a stress test 1 year ago which showed a valve issue, but no other problems. She has had a cough for a while now. She has been nauseous. She denies any fever, urinary symptoms, or vomiting. The patient has a history of hypertension, factor V Leiden, DVT, and PE. She has a [place] filter. She has had a left knee replacement and will need a right knee replacement in the future. She is on Coumadin. She has not taken Coumadin yesterday or today because her last INR was high. She denies any history of heart disease. Source of History: patient Onset: 1.5 months ago Position: leg (right) Quality: ache, other (jagging) Timing: other (persistent) Associated Symptoms: + chest pain, + SOB, + nausea, + back pain, No fevers, No vomiting, No urinary symptoms Note: Pt reports leg swelling. Pt denies hip pain. Review of Systems See HPI for pertinent positives & negatives. A total of 10 systems reviewed and were otherwise negative. Past Medical & Surgical Medical Problems: (1) Chest pain (2) DVT (deep venous thrombosis) (3) Factor 5 Leiden mutation, heterozygous (4) Factor 5 Leiden mutation, heterozygous (5) Hypertension (6) Left Knee DJD (7) Pulmonary embolism Family History Patient reports no known family medical history. Social History Smoking Status: Current Every Day Smoker Alcohol Use: occasionally Drug Use: none Marital Status: Housing Status: lives with significant other Current/Historical Medications Scheduled Albuterol Hfa (Ventolin Hfa), 2-4 PUFFS INH Q6H Buspirone Hcl (Buspar), 1 TAB PO BID Lisinopril (Zestril), 40 MG PO DAILY Sertraline (Zoloft), 200 MG PO DAILY Trazodone Hcl (Trazodone), 100 MG PO HS Warfarin Sod (Jantoven), 11.25-18.75 MG PO UD Scheduled PRN Furosemide (Lasix), 20 MG PO for FLUID RETENTION Allergies Coded Allergies: No Known Allergies (Unverified , 12/02/17) Physical Exam Vital Signs Date Time Temp Pulse Resp B/P (MAP) Pulse Ox O2 Delivery O2 Flow Rate FiO2 12/02/17 15:31 65 18 147/95 97 Room Air 12/02/17 14:25 66 12/02/17 14:25 96 Room Air 12/02/17 14:15 79 16 177/105 96 Room Air 12/02/17 12:23 36.5 69 20 199/108 94 Room Air Physical Exam Constitutional: Vital signs reviewed. Eyes: Pupils are equal round reactive to light. Conjunctiva are noninjected. ENT: Pharynx is clear without erythema or exudate. Mucous membranes are moist. Neck supple without meningeal signs. Respiratory: Clear to auscultation bilaterally. Breath sounds are equal bilaterally. Cardiovascular: Regular rate and rhythm. No rubs or gallops. GI: Soft, nondistended and nontender. Bowel sounds are present. Musculoskeletal: Difficult to assess for edema secondary to body habitus. Tenderness behind the right knee without palpable cord. No erythema or increased warmth. Mild tenderness to the medial joint line. Normal distal pulses. No hip tenderness. No CVA tenderness. Integumentary: No cyanosis. Neurological: The patient is awake and alert. No focal deficits. Psychiatric: Normal affect. Medical Decision & Procedures ER Provider Diagnostic Interpretation: X-ray results as stated below per interpretation by me and the radiologist. Radiology results as stated below per my review and the radiologist's interpretation: TWO VIEW CHEST CLINICAL HISTORY: Atypical chest pain. FINDINGS: PA and lateral chest radiographs are compared to chest x-ray and chest CT dated 09/19/2015. The heart is top mildly enlarged. The mediastinal contour is within normal limits. Small right pleural effusion is noted. The lungs and pleural spaces are otherwise clear. There is no pneumothorax. The bony thorax appears intact. IMPRESSION: 1. Mild cardiomegaly without radiographic evidence of congestive failure. 2. A small right pleural effusion is noted. Electronically signed by: Soto Barrett M.D. 12/02/2017 1:40 PM Dictated Date/Time: 12/02/2017 1:39 PM THORACIC SPINE 3 VIEWS ROUTINE HISTORY: Trauma. Pain. eval fro fx COMPARISON: None. FINDINGS: There is no fracture. No subluxation. Moderate degenerative disc changes throughout. No evidence for a acute compression deformity. IMPRESSION: 1. No acute bony abnormality. 2. Mild scoliosis. 3. Mild degenerative disc change. The above report was generated using voice recognition software. It may contain grammatical, syntax or spelling errors. Electronically signed by: Isaac Garcia M.D. 12/02/2017 1:47 PM Dictated Date/Time: 12/02/2017 1:47 PM LUMBAR SPINE 5 VIEWS CLINICAL HISTORY: Fall several weeks ago. Chronic low back pain. FINDINGS: Five views of the lumbar spine are compared to study dated 06/19/2017. The skeletal structures are osteopenic. There is no radiographic evidence of fracture or malalignment. Vertebral body height and alignment are maintained at the lumbar spine. The transverse and spinous processes appear intact. Anterior osteophytes are seen throughout. Mild facet arthropathy is noted in the lower lumbar region. There is no evidence of spondylolysis. There is mild disc space narrowing at L2-L3 with associated endplate sclerosis. Mild disc space narrowing is seen throughout the remainder of the lumbar spine. The visualized bony pelvis appears intact. Mild sclerotic change is noted in the sacroiliac joints. An IVC filter is in place. There is no evidence of bowel obstruction. IMPRESSION: 1. No acute bony abnormality seen involving the lumbar spine. 2. Osteopenia and spondylotic change as above. Dictated: 12/02/2017 1:40 PM Transcribed: 12/02/2017 1:51 PM [id number] Electronically signed by: Soto Barrett M.D. 12/02/2017 2:10 PM Dictated Date/Time: 12/02/2017 1:40 PM R KNEE 1 OR 2 VIEWS ROUTINE HISTORY: 51 years-old Female eval for fx acute right knee pain status post recent injury COMPARISON: Right knee radiographs 06/19/2017 TECHNIQUE: 2 views of the right knee FINDINGS: Previously discussed subcortical lucency noted beneath the medial tibial spine is again seen suggesting a subcortical cyst. Mild lateral compartment with moderate medial and mild to moderate patellofemoral compartment osteoarthritis. Small joint effusion. No acute fracture, subluxation or osteochondral defect identified. IMPRESSION: 1. Small joint effusion without acute fracture or subluxation. 2. Tricompartmental osteoarthritis, most pronounced within the medial compartment where there is moderate disease. The above report was generated using voice recognition software. It may contain grammatical, syntax or spelling errors. Electronically signed by: Mark Caldera M.D. 12/02/2017 1:42 PM Dictated Date/Time: 12/02/2017 1:39 PM ULTRASOUND R VENOUS DOPP LOWER EXT UNILAT CLINICAL HISTORY: Right leg pain and swelling COMPARISON STUDY: No previous studies for comparison. FINDINGS: No thrombus is visualized in the common femoral or superficial femoral vein. There is fibrin stranding within the popliteal vein. This is felt to be chronic. There is age-indeterminate thrombus involving one of the paired peroneal veins. The anterior tibial and posterior tibial veins appear patent. IMPRESSION: 1. Age-indeterminate calf thrombus involving one of 2 paired peroneal veins 2. Chronic fibrin stranding within the popliteal vein Electronically signed by: Robin Dodson M.D. 12/02/2017 2:00 PM Dictated Date/Time: 12/02/2017 1:59 PM (CHEST FOR PE) ANGIO WITH CT DOSE: 660.59 mGy.cm HISTORY: 51 years-old Female presents with acute difficulty breathing TECHNIQUE: Multiple CTA images of the chest were obtained after the intravenous administration of ml Optiray 320. Coronal and sagittal MIPS were obtained from the axial data set and were submitted for review. A dose lowering technique was utilized adhering to the principles of ALARA. COMPARISON: CTA of the chest 09/19/2015, venous Doppler study 12/02/2017. FINDINGS: CTA: Moderate multichamber cardiac enlargement. No pericardial effusion. Thoracic aorta is not well opacified. There is mild fusiform dilation of the ascending thoracic aorta beginning distal to the sinotubular junction, 4.2 x 4.3 cm in AP and transverse dimension, previously 4.2 x 4.2 cm on study dated 09/19/2015. No dissection identified. No significant atherosclerotic plaquing. The pulmonary arterial tree is opacified to level of the segmental branches. There are several linear peripheral nonocclusive filling defects noted within the pulmonary arterial tree involving segmental branches of the right lower lobe as seen on image 78 series 4, segmental branches of the right upper lobe seen on image 162 series 4 and also within segmental branches of the left lower lobe as seen on image 98 series 4. There may also be subtle filling defects noted within segmental branches of the superior segment lingula as seen on image [address] CHEST: Heterogeneous multinodular thyroid with largest nodule measuring 1.5 cm on the left. No definite pathologic adenopathy identified. Subsegmental linear consolidative and groundglass bibasilar opacities suggest atelectasis. Mild upper lobe predominant centrilobular emphysema. No pneumothorax or pleural effusion. No definite pulmonary infarction identified. No acute abnormality of the imaged upper abdomen. Soft tissues are unremarkable. Bones appear intact. Multilevel endplate degenerative changes. IMPRESSION: 1. Multiple small linear nonocclusive pulmonary emboli involve segmental branches bilaterally as above. 2. Mild emphysema. 3. Mild subsegmental bibasilar atelectasis without large pulmonary infarction identified. 4. Cardiomegaly with fusiform dilation of the ascending thoracic aorta beginning distal to the sinotubular junction, 4.2 x 4.3 cm. The above report was generated using voice recognition software. It may contain grammatical, syntax or spelling errors. Electronically signed by: Mark Caldera M.D. 12/02/2017 3:54 PM Dictated Date/Time: 12/02/2017 3:46 PM Laboratory Results 12/02/17 12:55 Red Blood Count 4.60, Mean Corpuscular Volume 67.8, Mean Corpuscular Hemoglobin 20.0, Mean Corpuscular Hemoglobin Concent 29.5, Mean Platelet Volume 9.3, Neutrophils (%) (Auto) 62.5, Lymphocytes (%) (Auto) 28.4, Monocytes (%) (Auto) 5.7, Eosinophils (%) (Auto) 2.3, Basophils (%) (Auto) 0.8, Neutrophils # (Auto) 4.15, Lymphocytes # (Auto) 1.88, Monocytes # (Auto) 0.38, Eosinophils # (Auto) 0.15, Basophils # (Auto) 0.05 12/02/17 12:55 Test 12/02/17 12:55 12/02/17 12:59 White Blood Count 6.63 K/uL (4.8-10.8) Red Blood Count 4.60 M/uL (4.2-5.4) Hemoglobin 9.2 g/dL (12.0-16.0) Hematocrit 31.2 % (37-47) Mean Corpuscular Volume 67.8 fL (80-100) Mean Corpuscular Hemoglobin 20.0 pg (25-34) Mean Corpuscular Hemoglobin Concent 29.5 g/dl (32-36) Platelet Count 255 K/uL (130-400) Mean Platelet Volume 9.3 fL (7.4-10.4) Neutrophils (%) (Auto) 62.5 % Lymphocytes (%) (Auto) 28.4 % Monocytes (%) (Auto) 5.7 % Eosinophils (%) (Auto) 2.3 % Basophils (%) (Auto) 0.8 % Neutrophils # (Auto) 4.15 K/uL (1.4-6.5) Lymphocytes # (Auto) 1.88 K/uL (1.2-3.4) Monocytes # (Auto) 0.38 K/uL (0.11-0.59) Eosinophils # (Auto) 0.15 K/uL (0-0.5) Basophils # (Auto) 0.05 K/uL (0-0.2) RDW Standard Deviation 51.1 fL (36.4-46.3) RDW Coefficient of Variation 20.8 % (11.5-14.5) Immature Granulocyte % (Auto) 0.3 % Immature Granulocyte # (Auto) 0.02 K/uL (0.00-0.02) Hypochromasia PRESENT Anisocytosis PRESENT Microcytosis PRESENT Prothrombin Time 20.6 SECONDS (9.0-12.0) Prothromb Time International Ratio 2.0 (0.9-1.1) Activated Partial Thromboplast Time 37.9 SECONDS (21.0-31.0) Partial Thromboplastin Ratio 1.5 Anion Gap 5.0 mmol/L (3-11) Est Creatinine Clear Calc Drug Dose 99.0 ml/min Estimated GFR () 93.3 Estimated GFR (Non- 80.5 BUN/Creatinine Ratio 24.9 (10-20) Calcium Level 8.7 mg/dl (8.5-10.1) Bedside D-Dimer 73 ng/mlFEU (0-450) Bedside Troponin I < 0.030 ng/ml (0-0.045) Laboratory results as reviewed by me. ECG Indication: chest pain Rate (beats per minute): 60 Rhythm: normal sinus Findings: no acute ischemic change, no ectopy ED Course 1230: The patient was evaluated in room B10. A complete history and physical exam was performed. 1407: I reevaluated the patient. I discussed the test results with her. Her last chest pain was a little earlier this morning, but nothing since then. I recommended hospitalization for further workup. She verbalized agreement of the treatment plan. She will be evaluated for further management. 1440: I discussed the patient's case with Dr. Amor Cox, [facility] hospitalist. He will evaluate the patient for further management. 1604: I reevaluated the patient. I updated her on the CT results. Dr. Chinchilla is evaluating the patient. Medical Decision This is a 51-year-old female who presents with leg pain, chest pain and shortness of breath. Differential diagnosis includes subtherapeutic INR, DVT, pulmonary embolism, unstable angina, [place], GERD, anxiety, pneumonia. I did perform a limited focused review of portions of the patient's old chart on the electronic medical record. The patient had an INR of 4.3 on November 27. I did evaluate the patient as noted above. The patient is presenting with right -sided leg pain behind her knee. She has had it for some time since she fell about a month and a half ago. She also has had chest pain with shortness of breath with exertion, although she states this has been going on for over a year and she had a negative stress test in December of last year. She does describe it as getting worse. She also has a history of pulmonary emboli and DVT. She had an elevated INR recently and so she did not take her Coumadin yesterday or today. She does have a [place] filter. IV access was established. The patient was placed on a continuous manager cardiac. I did order and personally review the patient's 12-lead EKG and x-rays as described above. I did order and review the patient's blood work as noted in the electronic medical record. Her d-dimer is negative. Her troponin is negative. INR is 2. I did order an ultrasound of the right lower extremity. I did review the images myself as well as the radiology report as described above. She does have 2 calf DVT of indeterminate age. I did order a CT scan of the chest which showed multiple bilateral pulmonary emboli. I did discuss the case with the hospitalist and family caseworker. I did discuss the test results with the patient. Medication Reconcilliation Current Medication List: was personally reviewed by me Blood Pressure Screening Patient's blood pressure: Elevated blood pressure Blood pressure disposition: Referred to PCP Consults Time Called: 1413 Consulting Physician: Dr. Amor Cox, [facility] hospitalist Returned Call: [phone] I discussed the patient's case with him. He will evaluate the patient for further management. Impression Primary Impression: Bilateral pulmonary embolism Additional Impressions: Right leg DVT Anticoagulated on Coumadin Scribe Attestation The scribe's documentation has been prepared under my direct and personally reviewed by me in its entirety. I confirm that the note above accurately reflects all work, treatment, procedures, and medical decision making performed by me. Departure Information Dispostion Being Evaluated By Hospitalist Referrals Zenobia Ogden M.D. (PCP) Patient Instructions My [facility] Problem Qualifiers Additional Impressions: Right leg DVT Affected thrombotic vein of extremity: unspecified lower extremity distal vein Chronicity: unspecified Qualified Codes: I82.4Z1 - Acute embolism and thrombosis of unspecified deep veins of right distal lower extremity
[2017-12-02] MEDS: BusPIRone 15 MG TAB PO SCH (21:38)
[2017-12-02] MEDS: TRAZODONE HCL 100 MG TAB PO SCH (21:38)
[2017-12-02] MEDS: HEPARIN 25,000 UNIT/500ML D5W 500 ML IV PRN (23:12)
[2017-12-03] VITALS (7 sets, daily range): BP systolic 116–140; BP diastolic 62–79; PULSE 60–73; TEMP 36.4–37; O2SAT 90–99
[2017-12-03] MEDS: OXYCODONE/ACETAMINOPHEN 5-325 TAB PO PRN ×3 (00:04→16:31)
[2017-12-03 00:49] LABS: PTT PATIENT 52.3 SECONDS (21.0-31.0)
[2017-12-03] MEDS: ALBUTEROL HFA 8 GM INHALER INH SCH ×4 (04:09→20:37)
[2017-12-03 07:26] LABS: HEMATOCRIT 30.7 % (37-47); MEAN CELL VOLUME 67.8 fL (80-100); MEAN CORPUSCULAR HEMOGLOBIN 19.9 pg (25-34); MEAN CORPUSCULAR HGB CONC 29.3 g/dl (32-36); MEAN PLATELET VOLUME 9.2 fL (7.4-10.4); PLATELET COUNT 216 K/uL (130-400); RED CELL DISTRIBUTION WIDTH CV 20.7 % (11.5-14.5); RED CELL DISTRIBUTION WIDTH SD 51.2 fL (36.4-46.3); WHITE BLOOD COUNT 5.46 K/uL (4.8-10.8)
[2017-12-03 08:03] LABS: BLOOD UREA NITROGEN 17 mg/dl (7-18); CALCIUM 8.5 mg/dl (8.5-10.1); CARBON DIOXIDE 29 mmol/L (21-32); CREATININE 0.94 mg/dl (0.60-1.20); GLUCOSE 84 mg/dl (70-99); POTASSIUM 3.9 mmol/L (3.5-5.1); SODIUM 138 mmol/L (136-145)
[2017-12-03] MEDS: SERTRALINE HCL 100 MG TAB PO SCH (09:15)
[2017-12-03] MEDS: LISINOPRIL 40 MG TAB PO SCH (09:15)
[2017-12-03] MEDS: BusPIRone 15 MG TAB PO SCH ×2 (09:15→20:36)
[2017-12-03] MEDS: FAMOTIDINE 20 MG TAB PO SCH (09:15)
[2017-12-03] MEDS: POLYETHYLENE (MIRALAX) 17 GM PACK PO PRN (09:16)
--- NOTE | 2017-12-03 09:17 | Progress Note ---
Subjective Date of Service: Dec 03, 2017. Subjective pt feels her breathing is improved after treatment for he PE her leg pain is about the same. I discussed treatment of her VTE as she has been on coumadin in the past and fairly compliant, she states she is open to the NOAC Problem List Medical Problems: (1) Anticoagulated on Coumadin Status: Acute (2) Bilateral pulmonary embolism Status: Acute (3) Right leg DVT Status: Acute Review of Systems Constitutional: + weakness, No fever, No chills Respiratory: + shortness of breath, + dyspnea on exertion, No cough Cardiac: + chest pain, + edema, No orthopnea, No PND Abdomen: No pain, No nausea, No vomiting, No diarrhea Musculoskeletal: + joint pain, + muscle pain, + swelling Psychiatric: No depression symptoms, No anxiety Endo: + fatigue Objective Vital Signs Date Time Temp Pulse Resp B/P (MAP) Pulse Ox O2 Delivery O2 Flow Rate FiO2 12/03/17 07:15 36.8 60 20 121/78 (92) 99 Nasal Cannula 2.0 12/03/17 04:10 36.9 67 16 126/79 (95) 94 12/03/17 04:00 Nasal Cannula 2.0 12/03/17 00:50 36.6 70 18 138/62 (87) 97 12/03/17 00:00 Nasal Cannula 2.0 12/02/17 18:30 36.5 65 18 147/95 96 Room Air 12/02/17 17:43 66 16 156/104 96 Room Air 12/02/17 15:31 65 18 147/95 97 Room Air 12/02/17 14:25 66 12/02/17 14:25 96 Room Air 12/02/17 14:15 79 16 177/105 96 Room Air 12/02/17 12:23 36.5 69 20 199/108 94 Room Air Physical Exam General Appearance: WD/WN, + mild distress, + obese Eyes: normal inspection, sclerae normal Respiratory/Chest: chest non-tender, lungs clear, normal breath sounds Cardiovascular: regular rate, rhythm, no murmur Abdomen: normal bowel sounds, non tender, soft Extremities: + pedal edema, + swelling Neurologic/Psychiatric: alert, oriented x 3 Laboratory Results Last 24 Hours Test 12/02/17 12:55 12/02/17 12:59 1/3/18 19:12 12/03/17 00:06 White Blood Count 6.63 K/uL Red Blood Count 4.60 M/uL Hemoglobin 9.2 g/dL Hematocrit 31.2 % Mean Corpuscular Volume 67.8 fL Mean Corpuscular Hemoglobin 20.0 pg Mean Corpuscular Hemoglobin Concent 29.5 g/dl Platelet Count 255 K/uL Mean Platelet Volume 9.3 fL Neutrophils (%) (Auto) 62.5 % Lymphocytes (%) (Auto) 28.4 % Monocytes (%) (Auto) 5.7 % Eosinophils (%) (Auto) 2.3 % Basophils (%) (Auto) 0.8 % Neutrophils # (Auto) 4.15 K/uL Lymphocytes # (Auto) 1.88 K/uL Monocytes # (Auto) 0.38 K/uL Eosinophils # (Auto) 0.15 K/uL Basophils # (Auto) 0.05 K/uL RDW Standard Deviation 51.1 fL RDW Coefficient of Variation 20.8 % Immature Granulocyte % (Auto) 0.3 % Immature Granulocyte # (Auto) 0.02 K/uL Hypochromasia PRESENT Anisocytosis PRESENT Microcytosis PRESENT Prothrombin Time 20.6 SECONDS Prothromb Time International Ratio 2.0 Activated Partial Thromboplast Time 37.9 SECONDS 52.3 SECONDS Partial Thromboplastin Ratio 1.5 2.0 Sodium Level 135 mmol/L Potassium Level 4.0 mmol/L Chloride Level 102 mmol/L Carbon Dioxide Level 28 mmol/L Anion Gap 5.0 mmol/L Blood Urea Nitrogen 21 mg/dl Creatinine 0.84 mg/dl Est Creatinine Clear Calc Drug Dose 99.0 ml/min Estimated GFR () 93.3 Estimated GFR (Non- 80.5 BUN/Creatinine Ratio 24.9 Random Glucose 90 mg/dl Calcium Level 8.7 mg/dl Bedside D-Dimer 73 ng/mlFEU Bedside Troponin I < 0.030 ng/ml Troponin I < 0.015 ng/ml Test 12/03/17 00:58 12/03/17 06:59 Troponin I < 0.015 ng/ml < 0.015 ng/ml White Blood Count 5.46 K/uL Red Blood Count 4.53 M/uL Hemoglobin 9.0 g/dL Hematocrit 30.7 % Mean Corpuscular Volume 67.8 fL Mean Corpuscular Hemoglobin 19.9 pg Mean Corpuscular Hemoglobin Concent 29.3 g/dl RDW Standard Deviation 51.2 fL RDW Coefficient of Variation 20.7 % Platelet Count 216 K/uL Mean Platelet Volume 9.2 fL Activated Partial Thromboplast Time 57.0 SECONDS Partial Thromboplastin Ratio 2.2 Sodium Level 138 mmol/L Potassium Level 3.9 mmol/L Chloride Level 104 mmol/L Carbon Dioxide Level 29 mmol/L Anion Gap 5.0 mmol/L Blood Urea Nitrogen 17 mg/dl Creatinine 0.94 mg/dl Est Creatinine Clear Calc Drug Dose 97.8 ml/min Estimated GFR () 81.4 Estimated GFR (Non- 70.2 BUN/Creatinine Ratio 17.7 Random Glucose 84 mg/dl Calcium Level 8.5 mg/dl Iron Level 32 mcg/dl Total Iron Binding Capacity 385 mcg/dl Ferritin 9.3 ng/ml Assessment and Plan Ms. Collado is a 51 y/o female with acute on chronic VTE with recent fall, these VTE are both limb and lung and have worsening clinical symptoms, she has a PMHx of Factor V Leiden and IVC filter, Numerous DVTs, Multiple PEs, S/P IVC Filter, HTN, COPD, DJD of Multiple Sites B/L Pulmonary Embolism and Age Indeterminant RLE DVT - Complicated by Factor V Leiden - Patient has had multiple DVTs and PEs due to her factor V Leiden; she is largely therapeutic on Coumadin with only one subtherapeutic reading at 1.9 in September 2017; - No RLE ultrasound for comparison but evidence of chronic findings of DVT and age indeterminate DVT - She does have IVC filter CT reveals bilateral pulmonary embolism with comparison to image in 2014 that shows progression - have held Coumadin and started heparin drip - I personally spoke to anticoagulation specialist and recommends to consider Eliquis 10 bid for one week then 5 bid or coumadin, keeping INR target 2.5-3.5, since pt states her INR has been very high in the past have looked into cost of eliquis will be affordable at 3$ monthly - Ventolin 2 puffs Q6H Chest Pain: PE vs GERD versus Musculoskeletal vs ACS versus Multifactorial no trend of troponins, - draft echo report shows no significant issues - Reporting worsening of chest pain post prandiallyl and focal RUQ abdominal pain, nausea,plus vomiting - ultrasound reveals mild hepatic steatosis but no gallbladder abnormalities - Had stress test approximately one year ago performed by Dr. Thakur do not feel pain is cardiac will have on acid reducing meds agreeable to nutritional counselling HTN and Lower Extremity Edema (Likely Lymphedema from chronic venous stasis): Hypertensive on admission stopped Ca ashley and given Lasix 20 mg daily and Lisinopril 40 mg daily Acute on chronic joint pain, worsened in right knee pain after her fall approximately 2 months ago, mild joint effusion seen, will have local measures for pain control and PT/OT Anxiety/Depression: BuSpar 15 mg BID, Zoloft 200 mg daily, and trazodone 100 mg daily DVT Prophylaxis: Heparin drip Code Status: FULL RESUSCITATION
[2017-12-03] MEDS: HEPARIN 25,000 UNIT/500ML D5W 500 ML IV PRN (11:15)
[2017-12-03] MEDS ORDERED: PERFLUTREN LIPID MICROSPHERE (DEFINITY) IV ONE (11:43)
--- NOTE | 2017-12-03 13:45 | ECHOCARDIOGRAM REPORT ---
*NOTICE TO RECEIVING [employer] [employer] This information is strictly Confidential and protected under [place] law. [place] law prohibits you from making any further disclosure of this information unless further disclosure is expressly permitted by the written consent of the person to whom it pertains or is authorized by law. A general authorization for the release of medical or other information is not sufficient for this purpose. Hospital accepts no responsibility if the information is made available to any other person, INCLUDING THE PATIENT. Interpretation Summary * Name: ADILSON TUCKER Study Date: 12/03/2017 09:13 AM BP: 121/78 mmHg * Patient Location: C.2T\S\E218\S\1 HR: 60 * : 1965 (M/d/yyyy) Gender: Female Height: 66 in * Age: 51 yrs Ethnicity: [place] Weight: 240 lb * Ordering Physician: Sharmila Joseph * Referring Physician: Self, Referred * Performed By: Malik Mendoza RCS * * Reason For Study: Chest Pain * BSA: 2.2 m2 * -- Conclusions -- * There is borderline concentric left ventricular hypertrophy. * Left ventricular systolic function is normal. * Normal diastolic function * Right ventricular systolic pressure is elevated at 40-50mmHg. * Mild aortic root dilatation. * The inferior vena cava is mildly dilated. * Compared to an echocardiogram from 09/20/2015, the estimated pulmonary pressures appears slightly higher otherwise minimal change. Procedure Details * A complete two-dimensional transthoracic echocardiogram was performed (2D, M-mode, Doppler and color flow Doppler). * A contrast injection of Definity was performed to improve assessment of LV function. * A contrast injection of Definity was performed to improve assessment for apical thrombus. * Contrast was injected into an intravenous site in the right arm. * One vial of Definity ultrasound contrast was diluted in normal saline to a total volume of 10 ml. A total of '2' ml of solution was administered during imaging. * Lot # [id number] of Definity utilized for procedure. * Expiration date . * The attending nurse who injected the contrast agent was Mihaela Arevalo RN. Left Ventricle * The left ventricle is normal in size. * There is borderline concentric left ventricular hypertrophy. * Ejection Fraction = 60-65%. * Left ventricular systolic function is normal. * Normal diastolic function * The left ventricular wall motion is normal. Right Ventricle * The right ventricle is normal in size and function. * The right ventricular systolic function is normal as assessed by tricuspid annular plane systolic excursion (TAPSE) (normal >1.5 cm). Atria * The left atrial size is normal. * Right atrial size is normal. Mitral Valve * The mitral valve is grossly normal. * Significant mitral regurgitation is absent. Tricuspid Valve * The tricuspid valve is not well visualized, but is grossly normal. * There is trace tricuspid regurgitation. * Right ventricular systolic pressure is elevated at 40-50mmHg. Aortic Valve * The aortic valve is not well visualized. * No hemodynamically significant valvular aortic stenosis. * There is no significant aortic regurgitation. Great Vessels * Mild aortic root dilatation. Pericardium/Pleural * There is no pericardial effusion. Great Vessels * The inferior vena cava is mildly dilated. MMode 2D Measurements and Calculations IVSd 1.1 cm IVSs 1.3 cm LVIDd 5.1 cm LVIDs 3.4 cm LVPWd 1.2 cm LVPWs 1.5 cm IVS/LVPW 0.95 FS 33.7 % EDV(Teich) 125.8 ml ESV(Teich) 47.5 ml EF(Teich) 62.2 % EDV(cubed) 135.4 ml ESV(cubed) 39.4 ml EF(cubed) 70.9 % % IVS thick 22.3 % % LVPW thick 31.6 % LV mass(C)d 224.4 grams LV mass(C)dI 103.8 grams/m\S\2 LV mass(C)s 173.4 grams LV mass(C)sI 80.2 grams/m\S\2 SV(Teich) 78.2 ml SI(Teich) 36.2 ml/m\S\2 SV(cubed) 96.0 ml SI(cubed) 44.4 ml/m\S\2 Ao root diam 4.2 cm Ao root area 13.8 cm\S\2 LA dimension 3.6 cm LA/Ao 0.86 LVAd ap4 46.9 cm\S\2 LVLd ap4 9.8 cm EDV(MOD-sp4) 180.0 ml LVAs ap4 28.1 cm\S\2 LVLs ap4 9.1 cm ESV(MOD-sp4) 70.2 ml EF(MOD-sp4) 61.0 % LVAd ap2 36.3 cm\S\2 LVLd ap2 9.0 cm EDV(MOD-sp2) 122.0 ml LVAs ap2 19.8 cm\S\2 LVLs ap2 7.8 cm ESV(MOD-sp2) 40.1 ml EF(MOD-sp2) 67.1 % SV(MOD-sp4) 109.8 ml SI(MOD-sp4) 50.8 ml/m\S\2 SV(MOD-sp2) 81.9 ml SI(MOD-sp2) 37.9 ml/m\S\2 Doppler Measurements and Calculations MV E max pinky 105.5 cm/sec MV A max pinky 74.4 cm/sec MV E/A 1.4 MV P1/2t max pinky 104.7 cm/sec MV P1/2t 72.8 msec MVA(P1/2t) 3.0 cm\S\2 MV dec slope 421.4 cm/sec\S\2 MV dec time 0.19 sec Ao V2 max 172.9 cm/sec Ao max PG 12.0 mmHg Ao max PG (full) 7.2 mmHg LV V1 max PG 4.8 mmHg LV V1 max 109.3 cm/sec PA V2 max 114.6 cm/sec PA max PG 5.3 mmHg TR max pinky 305.4 cm/sec
[2017-12-03] MEDS: TRAZODONE HCL 100 MG TAB PO SCH (20:37)
--- NOTE | 2017-12-03 21:07 | Medical Consult ---
Consultation Date of Consultation: Dec 03, 2017. Attending Physician: Juan Lopez M.D. Reason for Consultation: DVT and PE history of factor V leiden mutation History of Present Illness 51 year old female with history of multiple DVTs and PE, heterozygous for factor V leiden mutation She states that she had first DVT in her left leg at age 36 and she reports that it was unprovoked that time. She was found to be heterozygous for factor V leiden and was recommended for indefinite anticoagulation and follows with anticoagulation clinic on coumadin and she saw Dr Kevin in the past. In 2014 she had IVC filter placed prior to knee surgery in 10/2015. In January 2016, she followed up with vascular surgery and there was attempt to remove the IVC filter but this was unsuccessful. . She states that she has been compliant and INRs reviewed and she has been mostly therapeutic to supratherapeutic. She had a subtherapeutic INR of 1.9 on 10/07/17. On admission INR was 2.0. She is admitted with pain in the right leg and swelling and progressive shortness of breath. She states that she noticed progressive shortness of breath for the past 1 1/2 month and it became more severe on mild exertion that she came to hospital She was found to have age indeterminate DVT in right calf involving 1 of 2 paired peroneal veins and chronic fibrin stranding within the popliteal vein She denies any melena or hematochezia, but then states that she is uncertain because never look. She states that she has both upper and lower abdominal pain for several months and also noticed a recent change in bowel habits with alternating constipation and diarrhea. She is a smoker, states recently has cut down to less than half a pack per day due to her shortness of breath She states that she has been craving ice for the past year Iron studies are consistent with iron deficiency. She states that LMP was in 05/2017 and that she followed up with her wire drawing setter and had an exam and pap smear recently that was negative She said had heavy menses in the past but has not had any vaginal spotting or bleeding since 05/2017 She is not vegetarian CT scan chest PE protocol IMPRESSION: 1. Multiple small linear nonocclusive pulmonary emboli involve segmental branches bilaterally as above. 2. Mild emphysema. 3. Mild subsegmental bibasilar atelectasis without large pulmonary infarction identified. 4. Cardiomegaly with fusiform dilation of the ascending thoracic aorta beginning distal to the sinotubular junction, 4.2 x 4.3 cm. Past Medical/Surgical History PMH/PSH: DVT PE heterozygous for Factor V leiden mutation IVC filter placement, unsuccessful attempt at removal of IVC filter, DJD, HTN, COPD, hiatal hernia, obesity, tobacco use Left knee total arthroplasty, tubal ligation Medical Problems: (1) Anticoagulated on Coumadin Status: Acute (2) Bilateral pulmonary embolism Status: Acute (3) Right leg DVT Status: Acute Family History Diabetes mellitus Factor V Leiden Hypertension mother - factor V leiden mutation, heart disorder, hypertension, diabetes father after a stroke denies any Family history of bleeding disorder Social History Smoking Status: Current Every Day Smoker Alcohol Use: socially Drug Use: none Marital Status: Housing Status: lives with significant other Allergies Coded Allergies: No Known Allergies (Unverified , 12/02/17) Current Inpatient Medications Current Inpatient Medications Medications (Trade) Dose Ordered Sig/Agustin Route Start Time Stop Time Status Last Admin Dose Admin Ioversol (Optiray 320) 125 ml UD PRN IV 12/02/17 14:45 12/06/17 14:44 Acetaminophen (Tylenol Tab) 650 mg Q4H PRN PO 12/02/17 15:30 01/01/18 15:29 Al Hydrox/Mg Hydrox/Simethicone (Maalox Max Susp) 15 ml Q4H PRN PO 12/02/17 15:30 01/01/18 15:29 Magnesium Hydroxide (Milk Of Magnesia Susp) 30 ml Q12H PRN PO 12/02/17 15:30 01/01/18 15:29 Ondansetron HCl (Zofran Inj) 4 mg Q6H PRN IV 12/02/17 15:30 01/01/18 15:29 12/03/17 09:15 4 MG Polyethylene (Miralax Powder Packet) 17 gm DAILY PRN PO 12/02/17 15:30 01/01/18 15:29 12/03/17 09:16 17 GM Albuterol (Ventolin Hfa Inhaler) 2 puffs Q6H INH 12/02/17 15:30 01/01/18 15:29 12/03/17 16:31 2 PUFFS Buspirone HCl (BusPAR TAB) 15 mg BID PO 12/02/17 21:00 01/01/18 20:59 12/03/17 09:15 15 MG Furosemide (Lasix Tab) 20 mg DAILY PRN PO 12/02/17 15:30 01/01/18 15:29 Lisinopril (Zestril Tab) 40 mg DAILY PO 12/03/17 09:00 01/02/18 08:59 12/03/17 09:15 40 MG Sertraline HCl (Zoloft Tab) 200 mg DAILY PO 12/03/17 09:00 01/02/18 08:59 12/03/17 09:15 200 MG Trazodone HCl (Desyrel Tab) 100 mg HS PO 12/02/17 21:00 01/01/18 20:59 12/02/17 21:38 100 MG Famotidine (Pepcid Tab) 20 mg QAM PO 12/03/17 09:00 01/02/18 08:59 12/03/17 09:15 20 MG Miscellaneous (Iv Fluids Completed) 1 ea PRN PRN N/A 12/02/17 16:30 12/02/18 16:29 Oxycodone/ Acetaminophen (Percocet 5-325mg Tab) Take 1 tablet for pain le... Q4H PRN PO 12/02/17 16:45 12/16/17 16:44 12/03/17 16:31 2 TAB Hydralazine HCl (HydrALAZINE INJ) 10 mg Q6 PRN IV. 12/02/17 18:15 01/01/18 18:14 Heparin Sodium/ Dextrose 500 ml @ 28 mls/hr [id number] PRN IV 12/02/17 18:45 01/01/18 18:44 12/03/17 11:15 28 MLS/HR Review of Systems Constitutional: + fatigue, No fever, No chills, No sweats, No weight loss Eyes: No worsening of vision, No eye pain, No redness ENT: No unusual epistaxis, No nasal symptoms Respiratory: + shortness of breath, + dyspnea on exertion, No cough, No sputum , No wheezing Cardiovascular: + edema, No chest pain, No palpitations Abdomen: + pain, + nausea, + diarrhea, + constipation, No vomiting Musculoskeletal: + joint pain (right knee also lower back ) Genitourinary - Female: No dysuria, No urinary frequency, No hematuria Neurologic: No weakness, No numbness/tingling, No vertigo Endocrine: + fatigue, + problem reported Hematologic / Lymphatic: No abnormal bleeding/bruising, No swollen lymph nodes Integumentary: No rash, No itch Physical Exam Date Time Temp Pulse Resp B/P (MAP) Pulse Ox O2 Delivery O2 Flow Rate FiO2 12/03/17 20:00 Room Air 12/03/17 19:11 36.8 73 22 116/66 (83) 90 Room Air 12/03/17 16:00 Room Air 12/03/17 15:59 37.0 66 18 124/79 (94) 95 Room Air 12/03/17 12:00 Nasal Cannula 2.0 12/03/17 10:45 36.4 63 20 126/73 (90) 90 Room Air 12/03/17 08:00 Nasal Cannula 2.0 12/03/17 07:15 36.8 60 20 121/78 (92) 99 Nasal Cannula 2.0 12/03/17 04:10 36.9 67 16 126/79 (95) 94 12/03/17 04:00 Nasal Cannula 2.0 12/03/17 00:50 36.6 70 18 138/62 (87) 97 12/03/17 00:00 Nasal Cannula 2.0 General Appearance: WD/WN, no apparent distress Head: normocephalic, atraumatic Eyes: sclerae normal Neck: supple Respiratory/Chest: chest non-tender, lungs clear, normal breath sounds, no respiratory distress Cardiovascular: regular rate, rhythm, no murmur Abdomen/GI: normal bowel sounds, non tender, soft, + pertinent finding (obese) Back: no CVA tenderness Extremities/Musculoskelatal: + calf tenderness (right), + pedal edema (on right >L) Neurologic/Psych: alert, normal mood/affect, oriented x 3, + pertinent finding (grossly nonfocal) Skin: warm/dry Laboratory Results Last 24 Hours Test 12/03/17 00:06 12/03/17 00:58 12/03/17 06:59 12/03/17 16:35 Activated Partial Thromboplast Time 52.3 SECONDS 57.0 SECONDS Partial Thromboplastin Ratio 2.0 2.2 Troponin I < 0.015 ng/ml < 0.015 ng/ml White Blood Count 5.46 K/uL Red Blood Count 4.53 M/uL Hemoglobin 9.0 g/dL Hematocrit 30.7 % Mean Corpuscular Volume 67.8 fL Mean Corpuscular Hemoglobin 19.9 pg Mean Corpuscular Hemoglobin Concent 29.3 g/dl RDW Standard Deviation 51.2 fL RDW Coefficient of Variation 20.7 % Platelet Count 216 K/uL Mean Platelet Volume 9.2 fL Sodium Level 138 mmol/L Potassium Level 3.9 mmol/L Chloride Level 104 mmol/L Carbon Dioxide Level 29 mmol/L Anion Gap 5.0 mmol/L Blood Urea Nitrogen 17 mg/dl Creatinine 0.94 mg/dl Est Creatinine Clear Calc Drug Dose 97.8 ml/min Estimated GFR () 81.4 Estimated GFR (Non- 70.2 BUN/Creatinine Ratio 17.7 Random Glucose 84 mg/dl Calcium Level 8.5 mg/dl Iron Level 32 mcg/dl Total Iron Binding Capacity 385 mcg/dl Ferritin 9.3 ng/ml Urine Color YELLOW Urine Appearance CLEAR Urine pH 6.0 Urine Specific [place] 1.010 Urine Protein NEG Urine Glucose (UA) NEG Urine Ketones NEG Urine Occult Blood NEG Urine Nitrite NEG Urine Bilirubin NEG Urine Urobilinogen NEG Urine Leukocyte Esterase NEG Assessment & Plan 51 year old female with heterozygous for factor V leiden mutation, multiple DVT/ PE, s/p IVC filter in 2014 prior to knee surgery with unsuccessful retrieval, was on retirement coumadin with mostly therapeutic to supratherapeutic INRs admitted with progressive RLE pain and progeessive shortness of breath found to have RLE DVT indeterminate age and bilateral PE She is currently on heparin gtt Patient has iron deficiency anemia as well I recommend GI consult to evaluate her abdominal pain, recent change in bowel habit and her iron deficiency anemia Give venofer 200mg IV x 1 tomorrow Recommend age and gender appropriate cancer screening with primary care/ wire drawing setter She never had a mammogram Also recommend consider CT scan of abdomen/pelvis when feasible. She states that a pelvic US was planned by her [facility] but she did not follow thru with that so also recommend consider obtaining inpatient to evaluate abdominal and pelvic pain symptoms Smoking cessation advised I discussed switching to an alternative blood thinner given that recent INRs have been therapeutic to supratherapeutic and she reports progressive symptoms and CT showing PE I discussed benefits/risks/alternatives of apixaban with the patient and provided her with patient drug information on it. She understands that there is no antidote for bleeding and that she needs to avoid any trauma or injury Alternative of xarelto was discussed as well She is undecided at this time and states she will think about it and will let the primary team know She is interested in consulting with GI and Gynecology for the evaluation for a source of blood loss for her iron deficiency so please facilitate She states that she has used lovenox injections in the past and asked about going on that, and I discussed with her that lovenox is reasonable while she is undergoing evaluation for source of iron deficiency anemia, however she would need to follow up closely with the anticoagulation clinic for monitoring as patient has obesity. thank you for allowing us to participate in the care of this patient
[2017-12-04] MEDS: OXYCODONE/ACETAMINOPHEN 5-325 TAB PO PRN ×3 (00:25→12:49)
[2017-12-04] MEDS: POLYETHYLENE (MIRALAX) 17 GM PACK PO PRN ×2 (00:35→09:43)
[2017-12-04 03:24] VITALS: BP 125/79; PULSE 75; TEMP 36.5; O2SAT 95
[2017-12-04] MEDS: HEPARIN 25,000 UNIT/500ML D5W 500 ML IV PRN ×2 (04:07→09:23)
[2017-12-04] MEDS: ALBUTEROL HFA 8 GM INHALER INH SCH ×3 (04:09→14:12)
[2017-12-04] MEDS ORDERED: IRON SUCROSE INJ 200 MG in SODIUM CHLORIDE 0.9% 100ML 100 ML IV SCH (07:00)
[2017-12-04 07:12] LABS: PTT PATIENT 43.2 SECONDS (21.0-31.0)
[2017-12-04 07:15] LABS: HEMATOCRIT 30.8 % (37-47); HEMOGLOBIN 9.1 g/dL (12.0-16.0); MEAN CELL VOLUME 68.4 fL (80-100); MEAN CORPUSCULAR HEMOGLOBIN 20.2 pg (25-34); MEAN CORPUSCULAR HGB CONC 29.5 g/dl (32-36); MEAN PLATELET VOLUME 9.1 fL (7.4-10.4); PLATELET COUNT 248 K/uL (130-400); RED CELL DISTRIBUTION WIDTH CV 20.7 % (11.5-14.5); RED CELL DISTRIBUTION WIDTH SD 51.1 fL (36.4-46.3); WHITE BLOOD COUNT 5.36 K/uL (4.8-10.8)
[2017-12-04 07:30] LABS: CALCIUM 8.8 mg/dl (8.5-10.1); CREATININE 0.96 mg/dl (0.60-1.20)
[2017-12-04] MEDS: SERTRALINE HCL 100 MG TAB PO SCH (07:45)
[2017-12-04] MEDS: BusPIRone 15 MG TAB PO SCH (07:46)
[2017-12-04] MEDS: FAMOTIDINE 20 MG TAB PO SCH (07:46)
[2017-12-04] MEDS: LISINOPRIL 40 MG TAB PO SCH (07:48)
[2017-12-04 08:00] VITALS: BP 117/66; PULSE 75; TEMP 36.9; O2SAT 99
[2017-12-04] MEDS ORDERED: HEPARIN IV BOLUS 3,000 UNIT in SYRINGE 0 ML IV SCH (08:30)
--- NOTE | 2017-12-04 11:00 | Gastrointestinal Consultation ---
Gastrointestinal Consultation Date of Consultation: Dec 04, 2017 Attending Physician: Dr. Nagel Consulting Physician: Reason for Consultation: Iron deficiency anemia, abdominal pain. History of Present Illness Patient is a 51 year old female patient of Dr. Zenobia Watson with a hx of heterozygous for Factor V Leiden mutation, DVT, PE, HTN, COPD, obesity who presented to the ED yesterday for SOB and was found to have multiple bilateral PEs. She is being heparinized. She was also found to have iron deficiency anemia : Hb 9.1, Hct 31.2, MCV 68, iron 32. It appears that her most recent prior HB in 2014 was 10. The patient is seen and examined while she is laying in bed. She reports diffuse lower>upper, bilateral chronic abdominal pain, present for about a year. The pain is worse after eating and just prior to passing a BM; it is improved with laying down as well a mild temporary improvement after passing a BM. She has chronic constipation, taking laxatives often to affect a BM a few times/week. She believes that the pain is worse when she is constipated. About two weeks ago, she passed 2 loose black Bms/day, for about 2 days, then returned to her more typical pattern of constipation, passing brown BMs. She also has upper abdomen burning pain that is present everyday for atleast a year. She recalls having endoscopy at [facility] for pain and she also recalls being told years ago that she had iron deficiency anemia. She is not on an iron supplement. She is on Coumadin for hx of PE/DVTs and does not take any NSAIDs. No nausea/vomiting. Past Medical/Surgical History Medical Problems: (1) Anticoagulated on Coumadin Status: Acute (2) Bilateral pulmonary embolism Status: Acute (3) Right leg DVT Status: Acute Past Medical History: 1. PE/DVT 2. Heterozygous for Factor V Leiden mutation 3. DJD 4. HTN 5. COPD 6. Hiatal hernia 7. Obesity 8. Tobacco use Past Surgical History: 1. IVC filter placement 2. Unsuccessful attempt at removal of IVC filter 3. Left knee total arthroplasty 4. Tubal ligation Family History Diabetes mellitus Factor V Leiden Hypertension Social History Smoking Status: Current Every Day Smoker Alcohol Use: occasionally Drug Use: none Marital Status: Housing Status: lives with significant other Allergies Coded Allergies: No Known Allergies (Unverified , 12/02/17) Current Medications Home Meds and Scripts Medications Dose Route/Sig Max Daily Dose Days Date Category Lasix (Furosemide) 20 Mg Tab 20 Mg PO PRN 12/02/17 Reported Zestril (Lisinopril) 40 Mg Tab 40 Mg PO DAILY 12/02/17 Reported Ventolin Hfa (Albuterol) 200 Puffs/54981 Mcg Aers 2-4 Puffs INH Q6H 12/02/17 Reported Buspar (Buspirone Hcl) 15 Mg Tab 1 Tab PO BID 12/02/17 Reported Trazodone (Trazodone HCl) 100 Mg Tab 100 Mg PO HS 12/02/17 Reported Zoloft (Sertraline HCl) 100 Mg Tab 200 Mg PO DAILY 12/02/17 Reported Jantoven (Warfarin Sodium) 7.5 Mg Tab 11.25-18.75 Mg PO UD 11/07/15 Reported Review of Systems Constitutional: No fever, No chills, No sweats, No weight loss, No weakness Eyes: No eye pain, No redness ENT: No sore throat, No trouble swallowing, No pain on swallowing Respiratory: No cough, No wheezing, No shortness of breath, No dyspnea on exertion Cardiac: No chest pain, No edema, No palpitations Abdomen: + see HPI Neuro: No memory loss, No weakness, No numbness/tingling, No vertigo, No balance problems Psych: No depression symptoms, No anxiety, No insomnia Heme: No abnormal bleeding/bruising, No night sweats Endo: No excessive thirst, No excessive urination Skin: No rash, No itch, No new/changing skin lesions, No jaundice Physical Exam Date Time Temp Pulse Resp B/P (MAP) Pulse Ox O2 Delivery O2 Flow Rate FiO2 12/04/17 08:00 Nasal Cannula 2.0 12/04/17 08:00 36.9 75 18 117/66 (83) 99 12/04/17 04:00 Nasal Cannula 2.0 12/04/17 03:24 36.5 75 18 125/79 (94) 95 12/04/17 00:00 Nasal Cannula 2.0 12/03/17 23:33 36.5 68 16 140/72 (94) 95 2.0 12/03/17 20:00 Room Air 12/03/17 19:11 36.8 73 22 116/66 (83) 90 Room Air 12/03/17 16:00 Room Air 12/03/17 15:59 37.0 66 18 124/79 (94) 95 Room Air 12/03/17 12:00 Nasal Cannula 2.0 12/03/17 10:45 36.4 63 20 126/73 (90) 90 Room Air General Appearance: no apparent distress, + obese Eyes: normal inspection, EOMI Neck: supple, no adenopathy, thyroid normal Respiratory/Chest: chest non-tender, lungs clear, normal breath sounds, no accessory muscle use Cardiovascular: regular rate, rhythm, no JVD, no murmur Abdomen: normal bowel sounds, soft, no organomegaly, + tenderness (mild left mid abdomen tenderness) Extremities: normal inspection, no pedal edema, normal capillary refill Neurologic/Psych: alert, normal mood/affect, oriented x 3 Skin: normal color, no jaundice, warm/dry, no rash Laboratory Results Last 24 Hours Test 12/03/17 16:35 12/04/17 06:37 Urine Color YELLOW Urine Appearance CLEAR Urine pH 6.0 Urine Specific [place] 1.010 Urine Protein NEG Urine Glucose (UA) NEG Urine Ketones NEG Urine Occult Blood NEG Urine Nitrite NEG Urine Bilirubin NEG Urine Urobilinogen NEG Urine Leukocyte Esterase NEG White Blood Count 5.36 K/uL Red Blood Count 4.50 M/uL Hemoglobin 9.1 g/dL Hematocrit 30.8 % Mean Corpuscular Volume 68.4 fL Mean Corpuscular Hemoglobin 20.2 pg Mean Corpuscular Hemoglobin Concent 29.5 g/dl RDW Standard Deviation 51.1 fL RDW Coefficient of Variation 20.7 % Platelet Count 248 K/uL Mean Platelet Volume 9.1 fL Activated Partial Thromboplast Time 43.2 SECONDS Partial Thromboplastin Ratio 1.7 Sodium Level 138 mmol/L Potassium Level 4.0 mmol/L Chloride Level 102 mmol/L Carbon Dioxide Level 31 mmol/L Anion Gap 5.0 mmol/L Blood Urea Nitrogen 19 mg/dl Creatinine 0.96 mg/dl Est Creatinine Clear Calc Drug Dose 95.9 ml/min Estimated GFR () 79.4 Estimated GFR (Non- 68.5 BUN/Creatinine Ratio 19.8 Random Glucose 86 mg/dl Calcium Level 8.8 mg/dl Impression Patient is a 51 year old female with chronic, iron deficiency anemia, no gross GI bleeding. Her abdominal pain is suggestive of functional, IBS pain, likely IBS-D. Plan 1. EGD, Colonoscopy. 2. Timing of the endoscopic eval to be determined. It is not possible to do EGD today because she ate breakfast and she would need 2 days to prep for colonoscopy (hx of constipation). 3. It may be best to treat the acute PEs then interrupt anticoagulation, likely bridging with Lovenox in 4-6 weeks to do EGD, Colonoscopy at that time. Alternatively, she could be kept on heparin and prepped this weekend with plan for EGD, colonoscopy on Thursday.Will discuss with primary hospitalist. I performed a history and physical examination of the patient. I have discussed the patient's case, impression and plan with YUE Harris. Her note reflects my findings and plan. I recommend out patient bidirectional endoscopy once stable from her recent PE. No signs of aggressive active bleeding and most likely chronic low grade bleeding given long hx of anemia Terrance Schneider MD
[2017-12-04] MEDS ORDERED: APIXABAN 2.5 MG TAB PO ONE (12:00)
[2017-12-04] MEDS ORDERED: APIX1TAB3 PO (12:19)
--- NOTE | 2017-12-04 12:20 | Discharge Instructions ---
Discharge Instructions Date of Service Dec 04, 2017. Admission Reason for Admission: Pulmonary Embolism Discharge Discharge Diagnosis / Problem: DVT, PULMONARY EMBOLISM Discharge Goals Goal(s): Diagnostic testing, Therapeutic intervention Activity Recommendations Activity Limitations: as noted below Lifting Limitations: gradually increase as tolerated . Current Hospital Diet Patient's current hospital diet: AHA Diet (Heart Healthy) Discharge Diet Recommended Diet: Regular Diet Pending Studies Studies pending at discharge: no Medical Emergencies . Who to Call and When: Medical Emergencies: If at any time you feel your situation is an emergency, please call 911 immediately. . Non-Emergent Contact Non-Emergency issues call your: Primary Care Provider, Specialist (COAGULATION CLINIC) Call Non-Emergent contact if: temperature is above 101, your pain is unusual for you . . "Provider Documentation" section prepared by Juan Lopez. . VTE Core Measure Inpt VTE Proph given/why not?: Warfarin (Coumadin)
[2017-12-04 12:24] VITALS: BP 104/62; PULSE 69; TEMP 36.5; O2SAT 97
[2017-12-04 15:11] VITALS: BP 104/62; PULSE 69; TEMP 36.5; O2SAT 97
[2017-12-04] MEDS ORDERED: OXYC-57 PO (15:29)
--- NOTE | 2017-12-04 18:07 | Discharge Summary ---
Discharge Summary Date of Service Dec 04, 2017. Discharge Summary Admission Date: Dec 02, 2017 at 16:14 Discharge Date: Dec 04, 2017 Discharge Disposition: Home Principal Diagnosis: dvt/PE while on coumadin Medication Reconciliation New Medications: Apixaban (Eliquis) 5 Mg Tab 5 MG PO UD for 7 Days, #64 TAB 6 Refills PT SHOULD HAVE LOADING DOSE OF 10 MG BID FOR THE FIRST WEEK ONLY THEN 5 MG BID. THIS IS TO REPLACE COUMADIN Oxycodone/Acetaminophen 5MG/325MG (Percocet 5MG/325MG) Tab 1-2 TAB PO Q4H PRN for Pain, #30 TAB PAIN Continued Medications: Albuterol Hfa (Ventolin Hfa) 200 Puffs/93789 Mcg Aers 2-4 PUFFS INH Q6H, INHALER Buspirone Hcl (Buspar) 15 Mg Tab 1 TAB PO BID, TAB Furosemide (Lasix) 20 Mg Tab 20 MG PO PRN for FLUID RETENTION, TAB Lisinopril (Zestril) 40 Mg Tab 40 MG PO DAILY, TAB Sertraline (Zoloft) 100 Mg Tab 200 MG PO DAILY, TAB Trazodone Hcl (Trazodone) 100 Mg Tab 100 MG PO HS, TAB Discontinued Medications: Warfarin Sod (Jantoven) 7.5 Mg Tab 11.25-18.75 MG PO UD, TAB Discharge Exam Review of Systems: Constitutional: No fever, No chills Respiratory: No cough, No sputum Psychiatric: No depression symptoms, No anhedonism Physical Exam: General Appearance: no apparent distress, + obese Eyes: normal inspection, sclerae normal Neurologic/Psychiatric: alert, oriented x 3 Skin: normal color, warm/dry, no rash Hospital Course Ms. 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5, since pt states her INR has been very high in the past have looked into cost of eliquis will be affordable at 3$ monthly she has decided to use Eliquis and follow up with coagulation clinic Chest Pain: PE vs GERD versus Musculoskeletal vs ACS versus Multifactorial no trend of troponins, - echo report shows no significant issues - Reporting worsening of chest pain post prandiallyl and focal RUQ abdominal pain, nausea,plus vomiting - ultrasound reveals mild hepatic steatosis but no gallbladder abnormalities, discussed diet strategies and ordered principal quality engineer consult - Had stress test approximately one year ago performed by Dr. Thakur HTN and Lower Extremity Edema (Likely Lymphedema from chronic venous stasis): improved with anticoagulation will resume home meds for htn at discharge Acute on chronic joint pain, worsened in right knee pain after her fall approximately 2 months ago, mild joint effusion seen, will have local measures for pain control and short supply of prn percocet Anxiety/Depression: BuSpar 15 mg BID, Zoloft 200 mg daily, and trazodone 100 mg daily Code Status: FULL RESUSCITATION Total Time Spent: Greater than 30 minutes This includes examination of the patient, discharge planning, medication reconciliation, and communication with other providers. Discharge Instructions Please refer to the electronic Patient Visit Report (Discharge Instructions) for additional information.
== END 2017-12-04 15:58 | disposition home or self-care (01) | DRG 176 ==
LOC: C.EDB 12:17 → C.2T 16:14 → ENRESERV 16:53
PROVIDERS: ADMIT Internal Medicine; ATTEND Internal Medicine
DX: I26.99 Other pulmonary embolism without acute cor pulmonale (principal); D68.51 Activated protein C resistance; I82.401 Acute embolism and thrombosis of unspecified deep veins of right lower extremity; Z68.42 Body mass index [BMI] 45.0-49.9, adult; I10 Essential (primary) hypertension; J44.9 Chronic obstructive pulmonary disease, unspecified; F32.9 Major depressive disorder, single episode, unspecified; R60.0 Localized edema; E66.9 Obesity, unspecified; F41.9 Anxiety disorder, unspecified; D50.9 Iron deficiency anemia, unspecified; F17.200 Nicotine dependence, unspecified, uncomplicated; Z79.01 Long term (current) use of anticoagulants; Z79.899 Other long term (current) drug therapy

== ENCOUNTER → 2017-12-14 | Outpatient (CLI) | payer OTHER ==
[~2017-12-14] MED LIST changes: -ALBU1AER9 INH; -AMLO-114 PO; +APIX1TAB3 PO; +BUSP15TA70 PO; -MIRT15TA PO; +OXYC-57 PO; +SERT-234 PO; -SYMIN160 INH; +TRAZ100T29 PO; +VNTHFA/IN INH; -WARF7.5T4 PO
--- NOTE | 2017-12-14 14:01 | DIAGNOSTIC IMAGING REPORT ---
PELVIC ULTRASOUND, TRANSABDOMINAL AND TRANSVAGINAL HISTORY: LOWER ABD PAIN,IRREGULAR MENSES COMPARISON: None. FINDINGS: Uterus: 8.9 x 3.8 x 4.5 cm. The uterus is retroflexed. There are few small nabothian cysts. The uterus is not well visualized due to its positioning. Specifically, the endometrial stripe is difficult to define. Right ovary: Normal in size and demonstrates normal color flow. Left ovary: Normal in size and demonstrates normal color flow. Miscellaneous:No pelvic free fluid. IMPRESSION: 1. Retroflexed uterus. This is difficult to visualize due to its positioning. Specifically, the endometrial stripe is difficult to define. 2. Normal bilateral ovaries. Electronically signed by: Naun Cortez M.D. 12/14/2017 2:00 PM Dictated Date/Time: 12/14/2017 1:57 PM
== END | disposition home or self-care (01) ==
LOC: C.ULTR 13:17
PROVIDERS: ATTEND Physician Assistant
DX: N93.9 Abnormal uterine and vaginal bleeding, unspecified (principal); N85.4 Malposition of uterus

== ENCOUNTER 2017-12-29 12:00 | Emergency (ER) | payer OTHER ==
[~2017-12-29] VITALS: Ht 167.6 cm; Wt 131.0 kg
[2017-12-29 12:19] VITALS: TEMP 36.8; Ht 167.6 cm; Wt 131.0 kg
[2017-12-29] MEDS ORDERED: ONDANSETRON INJ 2 MG/ML 2 ML VIAL IV STA (12:40)
[2017-12-29] MEDS ORDERED: TPRSR/25 PO (12:41)
[2017-12-29] MEDS ORDERED: MoRPHine SULFATE 4 MG/ML 1 ML CARP\\VIAL IV PRN (12:45)
--- NOTE | 2017-12-29 12:50 | EMERGENCY ROOM VISIT NOTE ---
History Report prepared by Bryant: Jose Mejía Under the Supervision of: Dr. Soto Cannon M.D. First contact with patient: 12:34 Chief Complaint: SHORTNESS OF BREATH Stated Complaint: PAIN IN LOWER BACK, SHORTNESS OF BREATH Nursing Triage Summary: pt to the ED with c/o SOB and was in hospital with blood clots in legs and lungs SOB has been getting worse over past couple days with back pain History of Present Illness The patient is a 52 year old female who presents to the Emergency Room with complaints of a sharp right sided back pain that began a couple of days ago. She rates her pain a 7/10 in severity. She has a past medical history of DVT's and PE's that were found 25 days ago. She was treated as an inpatient, taken off of her Coumadin, and placed on Eliquis. She was found to have a low hemoglobin count, but blood was not given. Over the past couple of days, the patient began to experience worsening shortness of breath and an increased cough from her baseline. She then began to have a heaviness feeling to her chest and sharp right sided back pain. Her pain is exacerbated with breathing and movement. She denies any fevers, abdominal pain, or any other abnormal symptoms. Source of History: patient Onset: a couple of days ago Position: back (right-sided) Symptom Intensity: 7/10 Quality: sharp Timing: constant Modifying Factors (Worsening): breathing, movement Associated Symptoms: + cough, + SOB, No fevers, No nausea, No abdominal pain Note: She is experiencing chest heaviness. Review of Systems See HPI for pertinent positives & negatives. A total of 10 systems reviewed and were otherwise negative. Past Medical & Surgical Medical Problems: (1) Chest pain (2) DVT (deep venous thrombosis) (3) Factor 5 Leiden mutation, heterozygous (4) Factor 5 Leiden mutation, heterozygous (5) Hypertension (6) Left Knee DJD (7) USP (current) use of anticoagulants (8) Pulmonary embolism Family History Diabetes mellitus Factor V Leiden Hypertension Social History Smoking Status: Current Every Day Smoker Alcohol Use: occasionally Drug Use: none Marital Status: Housing Status: lives with significant other Current/Historical Medications Scheduled Albuterol Hfa (Ventolin Hfa), 2-4 PUFFS INH Q6H Apixaban (Eliquis), 5 MG PO BID Lisinopril (Zestril), 40 MG PO DAILY Metoprolol Succinate (Metoprolol Succinate ER), 25 MG PO DAILY Trazodone Hcl (Trazodone), 100 MG PO HS Scheduled PRN Furosemide (Lasix), 20 MG PO for FLUID RETENTION Oxycodone Ir (Roxicodone Ir), 1-2 TAB PO Q4H PRN for Pain Allergies Coded Allergies: Adhesives (Verified Allergy, Intermediate, RASH, 12/29/17) Physical Exam Vital Signs Date Time Temp Pulse Resp B/P (MAP) Pulse Ox O2 Delivery O2 Flow Rate FiO2 12/29/17 15:27 87 16 161/76 98 Room Air 12/29/17 14:00 58 18 167/78 95 Room Air 12/29/17 13:09 69 12/29/17 13:02 97 Room Air 12/29/17 12:19 36.8 75 20 210/103 96 Room Air Physical Exam GENERAL: Patient is in no acute distress. HEENT: No acute trauma, normocephalic atraumatic, mucous membranes moist, no nasal congestion, no scleral icterus. NECK: No stridor, no adenopathy, no meningismus, trachea is midline. LUNGS: Clear to auscultation bilaterally, no wheeze, no rhonchi, breath sounds equal. HEART: Without murmurs gallops or rubs, regular rate and rhythm. ABDOMEN: Soft, nontender, bowel sounds positive, no hernias, no peritonitis. BACK: Tender to the right posterior thoracic back, no rash. EXTREMITIES: No cyanosis, full range of motion of all the joints without pain or difficulty, no signs for acute trauma. Mild bilateral pedal edema. NEUROLOGIC: Oriented x 3, no acute motor or sensory deficits, no focal weakness. SKIN: No rash, no jaundice, no diaphoresis. Medical Decision & Procedures ER Provider Diagnostic Interpretation: Radiology results as stated below per my review and radiologist interpretation: CHEST CTA for PULMONARY ARTERIES CT DOSE: 697.10 mGycm HISTORY: Short of breath. History of DVT. TECHNIQUE: Multiaxial CT images of the chest were performed following the intravenous administration of contrast to evaluate the pulmonary arteries. Maximal intensity projection images were also obtained. A dose lowering technique was utilized adhering to the principles of ALARA. COMPARISON STUDY: Chest CTA 12/02/2017. FINDINGS: No evidence for an aortic dissection. A few subcentimeter thyroid nodules, unchanged. Mild aneurysmal dilatation of the ascending thoracic aorta measuring up to 4.3 cm in diameter. The main pulmonary artery is also distended measuring up to 3.9 cm. The heart is top normal in size. No pleural or pericardial effusions. No change in the scattered linear filling defects seen within the segmental branches of the bilateral lower lobes, right upper lobe, and lingular pulmonary arteries. No new filling defects identified within the pulmonary arteries. No significant mediastinal or hilar lymphadenopathy. The visualized liver, spleen, and adrenal glands are unremarkable. No fractures within the visualized osseous structures. No pneumothorax. The central airways are patent. Mild emphysema. Linear densities within the lung bases, right greater than left. This is similar to the prior study and likely represent subsegmental atelectasis are scarring. Stable 4 mm subpleural nodule within the right lower lobe on image 118. IMPRESSION: 1. No change compared to the prior study. 2. Scattered linear filling defects seen within the bilateral segmental pulmonary arteries as described above. Therefore, this favors chronic pulmonary embolus. No new pulmonary emboli identified. 3. Stable 4 mm nodule within the right lower lobe. This demonstrates greater than 2 year stability and is therefore likely benign. 4. Emphysema. 5. Stable mild aneurysmal dilatation of the ascending thoracic aorta measures up to 4.3 cm. Electronically signed by: Naun Cortez M.D. 12/29/2017 2:46 PM Dictated Date/Time: 12/29/2017 2:36 PM CHEST ONE VIEW PORTABLE CLINICAL HISTORY: EVALUATE RESPIRATORY DISTRESS.DYSPNEA COMPARISON STUDY: Chest CT December 02, 2017. FINDINGS: Lung volumes are at the lower limits of normal. There is no consolidation or evidence of pulmonary edema. Moderate cardiomegaly is unchanged. There is no pneumothorax or pleural effusion. IMPRESSION: No acute cardiopulmonary findings. Stable cardiomegaly. Electronically signed by: Niall Hinton M.D. 12/29/2017 1:26 PM Dictated Date/Time: 12/29/2017 1:20 PM Laboratory Results 12/29/17 12:55 Red Blood Count 4.87, Mean Corpuscular Volume 71.9, Mean Corpuscular Hemoglobin 21.1, Mean Corpuscular Hemoglobin Concent 29.4, Mean Platelet Volume 9.2, Neutrophils (%) (Auto) 58.0, Lymphocytes (%) (Auto) 30.8, Monocytes (%) (Auto) 8.4, Eosinophils (%) (Auto) 1.9, Basophils (%) (Auto) 0.7, Neutrophils # (Auto) 3.37, Lymphocytes # (Auto) 1.79, Monocytes # (Auto) 0.49, Eosinophils # (Auto) 0.11, Basophils # (Auto) 0.04 12/29/17 12:55 Test 12/29/17 12:55 White Blood Count 5.81 K/uL (4.8-10.8) Red Blood Count 4.87 M/uL (4.2-5.4) Hemoglobin 10.3 g/dL (12.0-16.0) Hematocrit 35.0 % (37-47) Mean Corpuscular Volume 71.9 fL (80-100) Mean Corpuscular Hemoglobin 21.1 pg (25-34) Mean Corpuscular Hemoglobin Concent 29.4 g/dl (32-36) Platelet Count 230 K/uL (130-400) Mean Platelet Volume 9.2 fL (7.4-10.4) Neutrophils (%) (Auto) 58.0 % Lymphocytes (%) (Auto) 30.8 % Monocytes (%) (Auto) 8.4 % Eosinophils (%) (Auto) 1.9 % Basophils (%) (Auto) 0.7 % Neutrophils # (Auto) 3.37 K/uL (1.4-6.5) Lymphocytes # (Auto) 1.79 K/uL (1.2-3.4) Monocytes # (Auto) 0.49 K/uL (0.11-0.59) Eosinophils # (Auto) 0.11 K/uL (0-0.5) Basophils # (Auto) 0.04 K/uL (0-0.2) RDW Standard Deviation 60.4 fL (36.4-46.3) RDW Coefficient of Variation 23.7 % (11.5-14.5) Immature Granulocyte % (Auto) 0.2 % Immature Granulocyte # (Auto) 0.01 K/uL (0.00-0.02) Hypochromasia PRESENT Anisocytosis PRESENT Prothrombin Time 10.1 SECONDS (9.0-12.0) Prothromb Time International Ratio 1.0 (0.9-1.1) Activated Partial Thromboplast Time 27.8 SECONDS (21.0-31.0) Partial Thromboplastin Ratio 1.1 Anion Gap 4.0 mmol/L (3-11) Est Creatinine Clear Calc Drug Dose 106.3 ml/min Estimated GFR () 90.0 Estimated GFR (Non- 77.7 BUN/Creatinine Ratio 19.9 (10-20) Calcium Level 8.6 mg/dl (8.5-10.1) Total Bilirubin 0.3 mg/dl (0.2-1) Aspartate Amino Transf (AST/SGOT) 12 U/L (15-37) Alanine Aminotransferase (ALT/SGPT) 20 U/L (12-78) Alkaline Phosphatase 83 U/L (45-117) Troponin I < 0.015 ng/ml (0-0.045) Total Protein 7.3 gm/dl (6.4-8.2) Albumin 3.3 gm/dl (3.4-5.0) Globulin 4.0 gm/dl (2.5-4.0) Albumin/Globulin Ratio 0.8 (0.9-2) Laboratory results reviewed by me. Medications Administered Medications (Trade) Dose Ordered Sig/Agustin Route Start Time Stop Time Status Last Admin Dose Admin Morphine Sulfate (MoRPHine SULFATE INJ) 4 mg Q15M PRN IV 12/29/17 12:45 12/29/17 15:37 DC 12/29/17 13:13 4 MG Ondansetron HCl (Zofran Inj) 4 mg NOW STAT IV 12/29/17 12:40 12/29/17 12:45 DC 12/29/17 13:13 4 MG ECG Indication: SOB/dyspnea Rate (beats per minute): 65 Rhythm: normal sinus Findings: no acute ischemic change, no ectopy Change: ECG interpreted by me. ED Course 1234: The patient was evaluated in room C12. A complete history and physical exam was performed. 1240: Ordered Zofran Inj 4 mg IV 1245: Ordered Morphine Sulfate 4 mg IV 1513: Reevaluated the patient. Discussed results and discharge instructions: She verbalized understanding and agreement. The patient is ready for discharge. Medical Decision Differential diagnosis includes but is not limited to PE, pneumonia, pneumothorax, [place], bronchitis, musculoskeletal pain, anemia, and electrolyte imbalance. There is no leukocytosis. The patient is anemic but her hemoglobin is improved compared to recent values. No significant electrolyte abnormality, kidney failure or hepatitis. Chest x-ray does not show pneumonia or pneumothorax. EKG shows a sinus rhythm, no acute ischemia. Cardiac enzyme testing 1 is not consistent with acute cardiac injury. Chest CT shows chronic findings in regard to her PEs, no acute worsening of her condition. The patient presents with right flank and posterior chest wall pain. She was not toxic or hypoxic. The pain was reproducible on exam and certainly may be musculoskeletal or possibly related to her pulmonary emboli. I do think she can be discharged. A few oxycodone were given for severe pain. The patient was encouraged to follow with her doctors office and return to here for any worsening symptoms. She was reassured. [place] Drug Monitoring Program Search Results: patient reviewed within database Drug Monitoring Findings: The patient was given Percocet when she was discharged from our hospital in early November. No other findings. Medication Reconcilliation Current Medication List: was personally reviewed by me Blood Pressure Screening Patient's blood pressure: Elevated blood pressure Blood pressure disposition: Referred to PCP Impression Primary Impression: Right flank pain Additional Impression: History of pulmonary embolism Scribe Attestation The scribe's documentation has been prepared under my direction and personally reviewed by me in its entirety. I confirm that the note above accurately reflects all work, treatment, procedures, and medical decision making performed by me. Departure Information Dispostion Home / Self-Care Prescriptions Oxycodone Ir (Roxicodone Ir) 5 Mg Tab 1-2 TAB PO Q4H Y for Pain, #10 TAB Prov: Soto Cannon M.D. 12/29/17 Referrals Zenobia Ogden M.D. (PCP) Forms HOME CARE DOCUMENTATION FORM, IMPORTANT VISIT INFORMATION Patient Instructions My [facility] Additional Instructions heat to the sore area rest see donya angeles later this week for a recheck oxy ir 1 tab every 4 hours for severe pain may also use tylenol for pain return if worsening or have fever workup here shows everything with the lungs to be stable Problem Qualifiers
[2017-12-29] MEDS ORDERED: OPTIRAY 320 IV PRN (13:00)
[2017-12-29 13:02] VITALS: O2SAT 97
[2017-12-29 13:09] LABS: BASO % 0.7 %; BASO ABS # 0.04 K/uL (0-0.2); EOS % 1.9 %; EOS ABS # 0.11 K/uL (0-0.5); HEMOGLOBIN 10.3 g/dL (12.0-16.0); IG# 0.01 K/uL (0.00-0.02); LYMPH % 30.8 %; LYMPH ABS # 1.79 K/uL (1.2-3.4); MEAN CELL VOLUME 71.9 fL (80-100); MEAN CORPUSCULAR HEMOGLOBIN 21.1 pg (25-34); MEAN CORPUSCULAR HGB CONC 29.4 g/dl (32-36); MEAN PLATELET VOLUME 9.2 fL (7.4-10.4); MONO % 8.4 %; MONO ABS # 0.49 K/uL (0.11-0.59); NEUT ABS # 3.37 K/uL (1.4-6.5); PLATELET COUNT 230 K/uL (130-400); RED CELL DISTRIBUTION WIDTH CV 23.7 % (11.5-14.5); RED CELL DISTRIBUTION WIDTH SD 60.4 fL (36.4-46.3); WHITE BLOOD COUNT 5.81 K/uL (4.8-10.8)
[2017-12-29 13:18] LABS: PTT PATIENT 27.8 SECONDS (21.0-31.0)
--- NOTE | 2017-12-29 13:28 | DIAGNOSTIC IMAGING REPORT ---
CHEST ONE VIEW PORTABLE CLINICAL HISTORY: EVALUATE RESPIRATORY DISTRESS.DYSPNEA COMPARISON STUDY: Chest CT December 02, 2017. FINDINGS: Lung volumes are at the lower limits of normal. There is no consolidation or evidence of pulmonary edema. Moderate cardiomegaly is unchanged. There is no pneumothorax or pleural effusion. IMPRESSION: No acute cardiopulmonary findings. Stable cardiomegaly. Electronically signed by: Niall Hinton M.D. 12/29/2017 1:26 PM Dictated Date/Time: 12/29/2017 1:20 PM
[2017-12-29 13:32] LABS: ALBUMIN 3.3 gm/dl (3.4-5.0); ALT/SGPT 20 U/L (12-78); AST/SGOT 12 U/L (15-37); BLOOD UREA NITROGEN 17 mg/dl (7-18); CALCIUM 8.6 mg/dl (8.5-10.1); CARBON DIOXIDE 28 mmol/L (21-32); CREATININE 0.86 mg/dl (0.60-1.20); GLUCOSE 98 mg/dl (70-99); POTASSIUM 4.2 mmol/L (3.5-5.1); SODIUM 135 mmol/L (136-145)
[2017-12-29 13:37] LABS: ALKALINE PHOSPHATASE 83 U/L (45-117); TOTAL PROTEIN 7.3 gm/dl (6.4-8.2)
--- NOTE | 2017-12-29 14:48 | DIAGNOSTIC IMAGING REPORT ---
CHEST CTA for PULMONARY ARTERIES CT DOSE: 697.10 mGycm HISTORY: Short of breath. History of DVT. TECHNIQUE: Multiaxial CT images of the chest were performed following the intravenous administration of contrast to evaluate the pulmonary arteries. Maximal intensity projection images were also obtained. A dose lowering technique was utilized adhering to the principles of ALARA. COMPARISON STUDY: Chest CTA 12/02/2017. FINDINGS: No evidence for an aortic dissection. A few subcentimeter thyroid nodules, unchanged. Mild aneurysmal dilatation of the ascending thoracic aorta measuring up to 4.3 cm in diameter. The main pulmonary artery is also distended measuring up to 3.9 cm. The heart is top normal in size. No pleural or pericardial effusions. No change in the scattered linear filling defects seen within the segmental branches of the bilateral lower lobes, right upper lobe, and lingular pulmonary arteries. No new filling defects identified within the pulmonary arteries. No significant mediastinal or hilar lymphadenopathy. The visualized liver, spleen, and adrenal glands are unremarkable. No fractures within the visualized osseous structures. No pneumothorax. The central airways are patent. Mild emphysema. Linear densities within the lung bases, right greater than left. This is similar to the prior study and likely represent subsegmental atelectasis are scarring. Stable 4 mm subpleural nodule within the right lower lobe on image 118. IMPRESSION: 1. No change compared to the prior study. 2. Scattered linear filling defects seen within the bilateral segmental pulmonary arteries as described above. Therefore, this favors chronic pulmonary embolus. No new pulmonary emboli identified. 3. Stable 4 mm nodule within the right lower lobe. This demonstrates greater than 2 year stability and is therefore likely benign. 4. Emphysema. 5. Stable mild aneurysmal dilatation of the ascending thoracic aorta measures up to 4.3 cm. Electronically signed by: Naun Cortez M.D. 12/29/2017 2:46 PM Dictated Date/Time: 12/29/2017 2:36 PM
[2017-12-29] MEDS ORDERED: OXYC1TAB3 PO (15:08)
[2017-12-29 15:27] VITALS: BP 161/76; PULSE 87; O2SAT 98
== END 2017-12-29 15:28 | disposition home or self-care (01) ==
LOC: C.EDB 12:02 → C.EDC 15:28
DX: R10.9 Unspecified abdominal pain (principal); R07.89 Other chest pain; I26.99 Other pulmonary embolism without acute cor pulmonale; R06.02 Shortness of breath; F17.200 Nicotine dependence, unspecified, uncomplicated; I82.409 Acute embolism and thrombosis of unspecified deep veins of unspecified lower extremity; D64.9 Anemia, unspecified; D68.51 Activated protein C resistance; I10 Essential (primary) hypertension; R05 Cough; Z79.01 Long term (current) use of anticoagulants; Z83.3 Family history of diabetes mellitus; Z83.2 Family history of diseases of the blood and blood-forming organs and certain disorders involving the immune mechanism; Z82.49 Family history of ischemic heart disease and other diseases of the circulatory system

== ENCOUNTER → 2018-06-25 | Day surgery (SDC) | payer OTHER ==
[2018-06-17 12:34] VITALS: Ht 167.6 cm; Wt 113.6 kg
[~2018-06-25] VITALS: Ht 167.6 cm; Wt 113.6 kg
[~2018-06-25] MED LIST changes: -BUSP15TA70 PO; +GABA-113 PO; +LIDOCAINE HCL 2% 2 ML VIAL (20MG/ML) ONE; -OXYC-57 PO; +PANT40TA PO; +PROPOFOL IV EMULSION 10 MG/ML 20 ML VIAL ONE; -SERT-234 PO; +SODIUM CHLORIDE 0.9% 500ML 500 ML IV ONE; +TPRSR/25 PO; -TRAZ100T29 PO
[2018-06-25 13:30] VITALS: TEMP 36.8
--- NOTE | 2018-06-25 14:41 | Endo History and Physical ---
History & Physical Date of Service: Jun 25, 2018. Chief Complaint: GERD/ANEMIA Referring Physician: AMANDA ARMENTA History of Present Illness anemia/abd pain Past Medical History Arthritis, Asthma, Anxiety, Blood Dyscrasias, Hypertension, Thrombophlebitis, Depression Past Surgical History Hx Cardiac Surgery: No Hx Internal Defibrillator: No Hx Pacemaker: No Hx Abdominal Surgery: Yes (BILATERAL TUBAL LIGATION) Hx of Implantable Prosthesis: No Hx Post-Op Nausea and Vomiting: No Hx Cancer Surgery: No Hx Thoracic Surgery: No Hx Orthopedic: Yes (LT KNEE REPLACEMENT 2014) Hx Urinary Tract Surgery: No Family History None Social History Smoking Status: Current Every Day Smoker Hx Substance Use: No Hx Alcohol Use: Yes (OCCASIONALLY) Allergies Coded Allergies: Adhesives (Verified Allergy, Intermediate, RASH, 06/17/18) NO KNOWN DRUG ALLERGIES (Verified Allergy, Unknown, ., 06/17/18) Current Medications Reported Home Medications Medications Dose Route/Sig Max Daily Dose Days Date Category Dose Instructions Neurontin (Gabapentin) 300 Mg Cap 300 Mg PO HS 06/17/18 Reported Protonix (Pantoprazole Sodium) Unknown Strength Tab Unknown Dose PO QAM 06/17/18 Reported Metoprolol Succinate ER (Metoprolol Succinate) 25 Mg Tabcr 25 Mg PO QPM 12/29/17 Reported Eliquis (Apixaban) 5 Mg Tab 5 Mg PO BID 12/09/17 Rx PT HAS HAD LOADING DOSE OF 10 MG BID FOR THE FIRST WEEK. WILL BEGIN 5 MG BID FOR CHRONIC THERAPY BEGINNING Thursday12/11/17 IN THE AM. Lasix (Furosemide) 20 Mg Tab 20 Mg PO PRN 12/02/17 Reported Zestril (Lisinopril) 40 Mg Tab 40 Mg PO QAM 12/02/17 Reported Ventolin Hfa (Albuterol) 200 Puffs/22394 Mcg Aers 2-4 Puffs INH Q6H PRN 12/02/17 Reported Vital Signs Weight (Kilograms): 113.64 Height (Feet): 5 Height (Inches): 6 Date Time Temp Pulse Resp B/P (MAP) Pulse Ox O2 Delivery O2 Flow Rate FiO2 06/25/18 13:30 36.8 76 16 153/83 (106) 95 Room Air Physical Exam General Appearance: WD/WN, no apparent distress Respiratory/Chest: Auscultation: breath sounds normal Cardiovascular: Heart Auscultation: RRR Abdomen: Bowel Sounds: normal Inspection & Palpation: soft, non-distended, no tenderness, guarding & rebound Assessment and Plan EGD for anemia/abd pain
--- NOTE | 2018-06-25 16:12 | GI REPORT ---
Patient Name: Jackelyn Collado Procedure Date: 06/25/2018 2:40 PM Date of : 1965 Admit Type: Outpatient Age: 52 Gender: Female Attending MD: Jericho Cortez MD Procedure: Upper GI endoscopy Providers: Jericho Cortez MD Referring MD: Zenobia Ogden Indications: Iron deficiency anemia, Gastro-esophageal reflux disease Medicines: Propofol per Anesthesia Complications: No immediate complications. Estimated blood loss: Minimal. Estimated Blood Loss: Estimated blood loss was minimal. Procedure: Pre-Anesthesia Assessment: - Prior to the procedure, a History and Physical was performed, and patient medications and allergies were reviewed. The patient's tolerance of previous anesthesia was also reviewed. The risks and benefits of the procedure and the sedation options and risks were discussed with the patient. All questions were answered, and informed consent was obtained. Prior Anticoagulants: The patient has taken no previous anticoagulant or antiplatelet agents. ASA Grade Assessment: II - A patient with mild systemic disease. After reviewing the risks and benefits, the patient was deemed in satisfactory condition to undergo the procedure. After obtaining informed consent, the endoscope was passed under direct vision. Throughout the procedure, the patient's blood pressure, pulse, and oxygen saturations were monitored continuously. The On-site loaner was introduced through the mouth, and advanced to the second part of duodenum. The upper GI endoscopy was accomplished without difficulty. The patient tolerated the procedure well. Findings: The upper third of the esophagus and middle third of the esophagus were normal. The esophagus and gastroesophageal junction were examined with white light. 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 These changes involved the mucosa at the upper extent of the gastric folds (35 cm from the incisors) extending to the Z-line (33 cm from the incisors). Hiatal narrowing was identified at 39 cm. Mucosa was biopsied with a cold forceps for histology. One specimen bottle was sent to pathology. Estimated blood loss was minimal. Verification of patient identification for the specimen was done by the physician and photographic equipment technician using the patient's name and medical record number. The exam of the stomach was otherwise normal. The examined duodenum was normal. Biopsies for histology were taken with a cold forceps for evaluation of celiac disease. Estimated blood loss was minimal. Verification of patient identification for the specimen was done by the physician and photographic equipment technician using the patient's name and medical record number. Retained gastric contents are not identified on this exam. Impression: - Normal upper third of esophagus and middle third of esophagus. 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 Biopsied. - Normal examined duodenum. Biopsied. Recommendation: - Discharge patient to home (ambulatory). - Resume regular diet. - Continue present medications. - Await pathology results. - Return to referring physician as previously scheduled. MD Jericho Gonzalez MD 06/25/2018 4:11:46 PM This report has been signed electronically. Note Initiated On: 06/25/2018 2:40 PM Number of Addenda: 1 I attest to the content of the Intraoperative Record and orders documented therein, exceptions below Addendum Number: 1 Addendum Date: 06/25/2018 4:45:40 PM Two gastric AVM- non bleeding identified in fundus on retroflexion. Cauterized with with bicap with success. MD Jericho Gonzalez MD 06/25/2018 4:49:26 PM This report has been signed electronically. {[id number]}
--- NOTE | 2018-06-25 16:14 | Discharge Instructions ---
Endoscopy Patient Instructions Date / Procedure(s) Performed Jun 25, 2018. EGD Allergy Information Coded Allergies: Adhesives (Verified Allergy, Intermediate, RASH, 06/17/18) NO KNOWN DRUG ALLERGIES (Verified Allergy, Unknown, ., 06/17/18) Discharge Date / Findings Jun 25, 2018. 1- HH 2- possible SS BE Medication Instructions Stopped Medication(s): JOHN Provider Instructions Activity Restrictions - No exercising or heavy lifting for 24 hours. - Do not drink alcohol the day of the procedure. - Do not drive a car or operate machinery until the day after the procedure. - Do not make any important decisions or sign important papers in 24 hours after the procedure. Following Day: - Return to full activity which may include returning to work/school. Diet Start your diet with liquids and light foods (jello, soup, juice, toast). Then eat your usual diet if not nauseated. Treatment For Common After Affects For mild abdominal pain, bloating, or excessive gas: - Rest - Eat lightly - Lie on right side Follow-Up Information Follow-up with AMANDA ARMENTA as scheduled Anesthesia Information What You Should Know You have had a procedure that required some medicine to reduce anxiety and discomfort. This treatment is called moderate sedation. After receiving the treatment, you may be sleepy, but you will be able to breathe on your own. The effects of the treatment may last for several hours. Follow these instructions along with Activity/Diet recommendations noted above: * Do NOT do anything where dizziness or clumsiness would be dangerous. * Rest quietly at home today, then you can be up and about tomorrow. * Have a responsible person stay with you the rest of today. * You may have had an I.V. today. If so, you may take the dressing off later today. Recommendations Call your doctor if: * Trouble breathing * Continuous vomiting for more than 24 hours * Temperature above 101 degrees * Severe abdominal pain or bloating * Pain not relieved by pain medicine ordered * There is increased drainage or redness from any incision * A large amount of rectal bleeding greater than 2-3 tablespoons. (If you had a polyp/s removed or have hemorrhoids, a small amount of blood - from the rectum is to be expected.) * You have any unanswered questions or concerns. IN THE EVENT OF A SERIOUS EMERGENCY, GO TO THE NEAREST EMERGENCY ROOM Your discharge instructions were prepared by provider Jericho Cortez. Patient Instructions Signature Page Jackelyn Collado Patient (or Guardian) Signature/Date: I have read and understand the instructions given to me by my caregivers. Caregiver/RN/Doctor Signature/Date: The above-named patient and/or guardian has received patient instructions on this date. + Original Patient Signature Page (only) stays with chart. Please make copy for patient.
[2018-06-25 16:37] VITALS: BP 156/84; PULSE 69; O2SAT 96
--- NOTE | 2018-06-25 16:45 | Anesthesiology Progress Note ---
Anesthesia Post Op Note Date & Time Jun 25, 2018 at 16:45 Vital Signs Pain Intensity: 0 Vital Signs Past 12 Hours Date Time Temp Pulse Resp B/P (MAP) Pulse Ox O2 Delivery O2 Flow Rate FiO2 06/25/18 16:37 69 20 156/84 (108) 96 Room Air 06/25/18 16:22 77 20 140/84 (102) 96 Room Air 06/25/18 16:07 84 16 114/72 (86) 95 Room Air 06/25/18 13:30 36.8 76 16 153/83 (106) 95 Room Air Notes Mental Status: alert / awake / arousable, participated in evaluation Pt Amnestic to Procedure: Yes Nausea / Vomiting: adequately controlled Pain: adequately controlled Airway Patency, RR, SpO2: stable & adequate BP & HR: stable & adequate Hydration State: stable & adequate Anesthetic Complications: no major complications apparent
== END | disposition home or self-care (01) ==
LOC: C.GI 13:00
PROVIDERS: ATTEND Internal Medicine Gastroenterology
DX: D50.9 Iron deficiency anemia, unspecified (principal); K21.9 Gastro-esophageal reflux disease without esophagitis; D68.51 Activated protein C resistance; Z86.718 Personal history of other venous thrombosis and embolism; J44.9 Chronic obstructive pulmonary disease, unspecified; G47.33 Obstructive sleep apnea (adult) (pediatric); J45.909 Unspecified asthma, uncomplicated; I10 Essential (primary) hypertension; F32.9 Major depressive disorder, single episode, unspecified; F17.200 Nicotine dependence, unspecified, uncomplicated; Z79.01 Long term (current) use of anticoagulants

== ENCOUNTER 2022-02-25 10:54 | Observation (INO) ==
--- NOTE | 2022-02-18 09:07 | Anesthesiology Consultation ---
Date of Service February 18, 2022 Assessment & Plan (1) Encounter for pre-operative examination: - COVID screening: Per assessment on 02/17: Travel screen negative, no known COVID-19 positive contacts or current COVID-19 related symptoms. Surgeon arranging preop COVID testing. Awaiting results. - Eliquis instructions per surgeon/prescriber - PCP office visit (12/17/21): "Hypertension.. Not at goal, elevated today, seems to be elevated at home as well.. will continue lisinopril 40 milligrams daily.. Advised to take Lasix 20 milligrams every day Follow-up in 1 month for recheck.. Chronic obstructive pulmonary disease.. stable.. History of pulmonary embolism.. history of multiple PEs and DVTs in the past. She has known Factor 5 Leiden mutation. She is currently chronically anticoagulated with Eliquis." Spoke with patient for update regarding home BP readings since PCP office visit. She states that BP significantly improved (generally 140s/70s) since changing lasix from PRN to 3x/week.* Chart Review Chart Review: Acceptable Risk for Surgery and Patient NOT seen in Pre Admission Testing History Surgery Operation Date: 02/24/22 12:30 Proposed Procedures p Right Total Knee Arthroplasty - Michael Darnell MD Height/Weight Height: 5 ft 6 in Weight: 122.47 kg Allergies Allergy/AdvReac Type Severity Reaction Status Date / Time adhesive Allergy Mild RASH Verified 02/17/22 15:24 No Known Drug Allergies Allergy Unknown . Verified 02/17/22 15:24 Medications Home Medications Medication Instructions Recorded Confirmed Last Taken apixaban 5 mg tablet (Eliquis) 5 mg PO BID 08/11/18 02/17/22 Unknown lisinopril 40 mg tablet 40 mg PO QAM 08/11/18 02/17/22 Unknown mometasone-formoterol HFA 200 2 puff INHALATION BID 11/02/18 02/17/22 Unknown mcg-5 mcg/actuation aerosol inhaler (Dulera) albuterol sulfate 90 mcg/actuation 2 - 4 puff INHALATION Q6H PRN #8.5 12/17/21 02/17/22 Unknown aerosol inhaler (Ventolin HFA) g furosemide 20 mg tablet 20 mg PO DAILY PRN 12/17/21 02/17/22 Unknown nicotine 14 mg/24 hr daily 1 patch TRANSDERMAL QAM 02/17/22 02/17/22 Unknown transdermal patch Past Medical History Medical History Anemia d/t ulcers, tx by GI per pt (received Iron Infusions in 2018) Anxiety controlled, stable per pt Chronic obstructive pulmonary disease Depression controlled, stable per pt DVT (deep venous thrombosis) multiple-left leg, most recent 2017, on Eliquis Factor 5 Leiden mutation, heterozygous GERD (gastroesophageal reflux disease) controlled, stable per pt History of pulmonary embolism 2017 Hypertension Morbid obesity with BMI of 40.0-44.9, adult Obstructive sleep apnea No device Osteoarthritis Right knee DJD Venous insufficiency (chronic) (peripheral) Past Family History Family History Mother Diabetes Factor V Leiden Hypertension Sister Diabetes Brother Diabetes Father Hypertension Other No family history of adverse response to anesthesia Denies family history of Prostate cancer Breast cancer Colorectal cancer Past Surgical History Surgical History History of bilateral tubal ligation History of colonoscopy History of esophagogastroduodenoscopy (EGD) (2018) History of left knee replacement (10/2016) History of tooth extraction ALL TEETH S/P IVC filter Social History Smoking Status: Light tobacco smoker tobacco type: cigarettes Smoking cigarettes per day: smokes approx once a week a few cigarettes/ has patch/ trying to quit Do You Dip or Chew Tobacco: No Hx Alcohol Use: Yes Alcohol type: wine alcohol intake frequency: a few times a month Hx Substance Use: No substance use type: does not use Lab Results Anesthesia Preop Results Results Anesthesia Widget: WBC 6.83 K/uL (4.8-10.8) 02/13/22 Hgb 14.9 g/dL (12.0-16.0) 02/13/22 Hct 43.7 % (37-47) 02/13/22 Plt 327 K/uL (130-400) 02/13/22 Na 138 mmol/L (136-145) 02/13/22 K 4.4 mmol/L (3.5-5.1) 02/13/22 Cl 103 mmol/L (98-107) 02/13/22 CO2 28 mmol/L (21-32) 02/13/22 BUN 14 mg/dl (6-23) 02/13/22 Creat 0.70 mg/dl (0.6-1.2) 02/13/22 Glucose Level 115 mg/dl (70-99(Fasting)) H 02/13/22 PT 10.3 Seconds (9.0-12.0) 02/13/22 INR 1.0 (0.9-1.1) 02/13/22 Blood Type A Negative 02/13/22 Antibody Screen NEGATIVE 02/13/22 Testing Electrocardiogram Date: 10/29/21 Normal sinus rhythm with sinus arrhythmia at 64 bpm. Chest X-Ray Date: 10/29/21 FINDINGS: PA and lateral chest radiographs are compared to study dated 11/02/2018 and correlated with chest CT dated 10/17/2019. The heart is enlarged. The pulmonary vasculature is noncongested. Emphysema and chronic interstitial thickening is similar to previous. No airspace consolidation or pleural effusion is identified. There is bibasilar scarring/atelectasis. There is no pneumot horax. The skeletal structures are osteopenic. The bony thorax appears intact. IMPRESSION: Cardiomegaly and emphysema with no active disease in the chest. Echocardiogram Date: 12/03/17 Borderline concentric LVH. RVSP elevated at 40-50 mmHg. Mild aortic root dilatation. Mildly dilated IVC. EF 60-65%. No significant valvular disease. Stress Test Date: 01/26/17 Dobutamine stress EKG/echo for ischemia at 82% MPHR. LVEF 60%.
--- NOTE | 2022-02-22 09:32 | History and Physical Report ---
DATE OF ADMISSION: 02/24/2022 CHIEF COMPLAINT: Persistent and progressive right knee pain. HISTORY OF PRESENT ILLNESS: The patient is a 56-year-old female well known to me from a previous lef t knee replacement done in 10/2015. Over the past year and a half, she has developed increased pain and discomfort in her right knee. She has been through extensive conservative treatment on both knee s over time, which has not been very successful. Shots provide minimal relief. Medicine does not he lp much. Pain is increased with weightbearing. It is global pain. The more she is up and on it, th e more it hurts. Very happy with her left knee and would like to have her right knee replaced. Of note, the patient does have a history of multiple DVTs and PEs in the past. She has got an IVC fi lter in place that was placed before her last ____ surgery, never taken out. She is on Eliquis twice a day. PAST MEDICAL HISTORY: Significant for: 1. Hypertension. 2. Factor V Leiden abnormality with several DVTs and PE with an IVC filter in place. 3. Sleep apnea. 4. Gastroesophageal reflux disease. 5. Hiatal hernia. 6. Obesity with BMI of 44. PAST SURGICAL HISTORY: Includes: 1. Tubal ligation. 2. IVC filter placement. 3. Left knee replacement done on 11/16/2015. ALLERGIES: None. CURRENT MEDICATIONS: Include: 1. Lisinopril. 2. Eliquis 5 mg twice a day. 3. Duexis twice a day. SOCIAL HISTORY: A 56-year-old female. She lives in [place]. Does not smoke. No significant al cohol intake. FAMILY HISTORY: Noncontributory. REVIEW OF SYSTEMS: Significant for factor V Leiden abnormality, on Eliquis with an IVC filter in bianca ce. Also has significant obesity with BMI of 44. Denies any chest pain or shortness of breath. PHYSICAL EXAMINATION: GENERAL: Shows a pleasant middle-aged female who looks to be in reasonably good health. HEENT: Benign. NECK: Supple. No lymphadenopathy. LUNGS: Clear to auscultation. HEART: Has a regular rate and rhythm. ABDOMEN: Soft, nontender, nondistended. EXTREMITIES: Grossly neurovascularly intact except as follows: Examination of the right leg reveals the patient walks with a slight bit of a limp. She has got a moderate to large soft tissue envelope . Range of motion is 0 to 120 degrees. She is tender diffusely around her knee. Small to moderate- sized knee effusion. X-RAYS: X-rays of the right knee are reviewed. It shows advanced right knee DJD. She has complete loss of her medial joint space. She has some subchondral sclerosis. The left knee replacement looks to be in good position. ASSESSMENT: A 56-year-old white female status post a left knee replacement in the past with several medical comorbidities including factor V Leiden abnormality, history of deep venous thrombosis and pu lmonary embolisms in the past with an inferior vena cava filter in place, gastroesophageal reflux dis ease, hiatal hernia, obesity and hypertension with advanced right knee arthritis. She has failed con servative measures and would like to have her right knee replaced. PLAN: We will proceed with right knee replacement. Risks and benefits of this procedure were explai henry to the patient and include but not limited to DVT, PE, , infection, neurological injury, vas cular injury, bleeding problem, pain, limited range of motion, stiffness, failure to relieve her symp toms, incomplete relief of symptoms, need for further surgery in the future, fracture, leg length ine quality, nerve palsy, etc. The patient understands and desires to proceed. Informed consent was obt ained. She will stop her Eliquis 3 days preop. We will start her on a prophylactic dose 24 hours postop and then advance to the full dose. She has got an IVC filter in place. She is planning to be discharge d to home using [facility] program. Job ID: [id number]
[~2022-02-25 10:54] MED LIST changes: +ACETAMINOPHEN 500 MG TAB PO SCH; -APIX1TAB3 PO; +BUPIVACAINE 0.25% 30 ML VIAL ONE; +BUPIVACAINE 0.5 % 5 MG/1 ML PF 10ML VIAL ONE; +BUPIVACAINE LIPOSOME/PF 266 MG, BUPIVACAINE/EPINEPHRINE 50 ML, SODIUM CHLORIDE 0.9% 30 ... INFIL SCH; +FAMOTIDINE 20 MG TAB PO SCH; -FURO-85 PO; -GABA-113 PO; +GABAPENTIN 600 MG DOSE PO SCH; -LIDOCAINE HCL 2% 2 ML VIAL (20MG/ML) ONE; -LISI40TA PO; +LR 500ML BOLUS, THEN 15ML/HR IV SCH; +LR 60ML/HR IV SCH; +METOCLOPRAMIDE HCL 10 MG TABLET PO SCH; -PANT40TA PO; -PROPOFOL IV EMULSION 10 MG/ML 20 ML VIAL ONE; -SODIUM CHLORIDE 0.9% 500ML 500 ML IV ONE; +Scopolamine 1 MG TDSY TD SCH; +Scopolamine CHECK PATCH PLACEMENT SCH; -TPRSR/25 PO; +TRANEXAMIC ACID 1,000 MG **IV Intra-op IV SCH; -VNTHFA/IN INH
[2022-02-25] MEDS ORDERED: ACETAMINOPHEN 500 MG TAB ONE (12:01)
--- NOTE | 2022-02-25 12:19 | History & Physical Bridge Note ---
Date of Service February 25, 2022 History & Physical Bridge Note I have examined the patient, reviewed the History & Physical and in the interval since the performance of the History & Physical I have noted the following changes of clinical significance: no changes noted
[2022-02-25] MEDS ORDERED: HYDROmorphone INJ 2 MG/ML SYR/VIAL IV PRN (13:42)
[2022-02-25] MEDS ORDERED: ATROPINE SULFATE 0.1 MG/ML 10ML SYR IV PRN (13:42)
[2022-02-25] MEDS ORDERED: fentaNYL citrate 100 MCG/2 ML VIAL IV PRN (13:42)
[2022-02-25] MEDS ORDERED: ePHEDrine sulfate 50 MG/ML AMP IV PRN (13:42)
[2022-02-25] MEDS ORDERED: BUPIVACAINE/EPINEPHRINE 0.25% 1:200,000 30 ML VIAL ONE (14:42)
[2022-02-25] MEDS ORDERED: BUPIVACAINE LIPOSOME 1.3% 266 MG/20 ML VIAL ONE (14:42)
[2022-02-25] MEDS ORDERED: SODIUM CHLORIDE 0.9% PF 50 ML VIAL ONE (14:42)
[2022-02-25] MEDS ORDERED: MIDAZOLAM HCL 1 MG/ML 2ML VIAL ONE ×2 (14:51→15:10)
[2022-02-25] MEDS ORDERED: ROPIVACAINE 0.5% 5 MG/ML 30 ML VIAL ONE (14:57)
[2022-02-25] MEDS ORDERED: PROPOFOL IV EMULSION 10 MG/ML 20 ML VIAL IV ONE ×4 (15:30→16:32)
[2022-02-25] MEDS ORDERED: LIDOCAINE 2% 2 ML VIAL/AMP(20MG/ML) INFIL ONE (15:30)
--- NOTE | 2022-02-25 17:16 | Operative Report ---
PG Post Operative Report Pre & Post Diagnosis Operation Date: 02/25/22 13:00 Pre-Op Diagnosis: Right Knee Osteoarthritis Post-Op Diagnosis: Right Knee Osteoarthritis I identified the patient and participated in the time-out.: Yes Procedure Operation Date: 02/25/22 13:00 Actual Procedures p Right Total Knee Arthroplasty(Right) - Michael Darnell MD Surgeon Michael Darnell MD Caseworker Isaiah Jimenez PA-C Estimated Blood Loss 50 Findings Consistent with Post-Op Diagnosis Operative findings were advanced right knee DJD. She had extensive grade 4 [id number] disease primarily in the medial compartment but some focal changes in the patellofemoral compartment as well. The lateral compartment was pretty well spared. She had osteophytes medially. Moderate-sized joint effusion. Fluids 1500 cc Specimens Right knee sent for pathology Anesthesia Type Spinal MAC Complications none Disposition Accompanied Patient To Recovery: No Indications Patient is a 56-year-old female said a long history of knee problems. She had her left knee replaced several years ago and is done well from this. Over the past several years she developed increased pain discomfort in her right knee. She failed all conservative measures. X-rays show advanced medial compartment arthritis. She elected to a surgical management. Description of Procedure Operative implants consist of: 1. Biomet Vanguard size 62.5 right posterior stabilized femoral component. 2. Biomet size 67 tibial tray. 3. 12 mm posterior stabilized polyethylene insert. 4. 28 x 8 all polypatella. The patient was taken to the operating, identified, placed on the operating table supine position. All contact areas were properly padded. IV antibiotics tried by anesthesia team. Spinal anesthetic had been implemented holding area. Alamo catheter was placed in sterile fashion. Right thigh tip was then placed in the right lower extremities and prepped and draped in usual sterile fashion. The right leg was elevated exsanguinated with use of an Esmarch and the tourniquet was placed at 350 mmHg. An anterior approach to the right knee was then performed to longitudinal incision centered over the patella. Sharp dissection carried through subcutaneous tissue down the extensor mechanism. A medial parapatellar arthrotomy incision was made. Some subperiosteal dissection was carried out medially. The fat pad was resected from each patella tendon. Lateral patellofemoral ligament was released. Patella was subluxated laterally and the knee was flexed. The osteophytes taken out distal femur. The ACL and PCL then released from the distal femur the tibia subluxated anteriorly. The external tibial alignment jig was then placed in the interface the tibia and adjusted 14 mm medially. Proximal tibial cut was made to remove about 3 mm of bone from the medial side. Tibia sized to a size 67. Attention drawn the femur. The distal femur then with a sharp drop with intramedullary canal was suction. A right 5 degree valgus cutting guide was placed. Distal femoral cutting block was pinned in place but distal femoral cut was made to take an additional 3 mm of bone off distal femur. The femur was then sized to a size 62.5. The AP cutting block was pinned parallel to the epicondylar axis which was 3 degrees of external rotation. Anterior cut, anterior chamfer, posterior cut, posterior chamfer cuts were made. The box cutting guide was placed in just slight lateral box cut was made. The knee was flexed. The remnants of the medial lateral menisci were excised. The osteophytes were taken off the posterior aspect of femur. Trial femoral component was placed. Tibial tray was pinned in maximum external rotation and the drill and stem punch used to create defect in proximal tibia for the tibial tray. Knee was then trialed and the 12 mm insert fit most appropriately. Attention drawn the patella. Patella was cleaned of all soft tissues. Patella thickness measured 21 mm in thickness and was cut down to 12 mm. Was sized to a size 28 patella. The lug holes were drilled for the 28 patella. The lateral osteophyte is moved. Patella button was placed. Knee was taken through range of motion patella tracked nicely with no thumbs test. Attention drawn to placing permanent components. All trial components were removed. Bone plug was placed in the distal femur limit blood loss put a double batch Palacos G cement was mixed. Biomet Vanguard size 62.5 right posterior stabilized femoral component, size 67 tibial tray, 12 mm posterior stabilized polyethylene insert, and a 28 x 8 all polypatella instrument placed. Knee was brought out into full extension total cement hardened. Final cement check was then performed. Pericapsular tissues were injected with total 100 cc of combination of 20 of Exparel, 30 cc normal saline, 50 cc of quarter percent Marcaine with epinephrine. Patient did receive 1 g tranexamic acid. The tourniquet was then let down for final tourniquet time of 56 minutes. Hemostasis surgeons electrocautery. The extensor mechanism closed with combination 1 PDS suture #1 Vicryl suture in [id number] fashion with extensor mechanism checked found to be intact the subcutaneous tissue then closed with 2 Dexon suture in a buried knot fashion skin was closed skin beth. Leg was then cleaned and dried and sterile dressing was Xeroform, 4 x 4's, sterile cast padding, Albert bandage were applied. Patient then transferred to the recovery room in stable condition. Patient tolerated procedure well no complications. Isaiah Jimenez, my physician psychologist research assistant, was present for the entire procedure. His assistance was essential and required for appropriate patient positioning, prepping and draping, surgical exposure, performing the technical details of the operation, placement the implants, closure of the wound, and placement of the sterile bandage. I attest to the content of the Intraoperative Record and any orders documented therein. Any exceptions are noted below.
[2022-02-25] MEDS ORDERED: hydrALAZINE HCL 20 MG/ML VIAL ONE (17:32)
[2022-02-25] MEDS ORDERED: hydrALAZINE HCL 20 MG/ML VIAL IV STA (17:33)
--- NOTE | 2022-02-25 17:45 | Anesthesiology Progress Note ---
Date of Service February 25, 2022 Anesthesia Post Procedure Vital Signs Vital Signs: Temp Pulse Resp BP Pulse Ox 02/25/22 17:10 37 C 16 141/67 H 98 02/25/22 14:20 206/103 H 02/25/22 11:29 36.8 C 72 20 221/105 H 96 Transfer of Care Handoff Completed per policy Notes Mental Status: alert / awake / arousable Patient Amnestic to Procedure: Yes Nausea / Vomiting: adequately controlled Pain: adequately controlled Airway Patency, RR, SpO2: stable & adequate BP & HR: stable & adequate Hydration State: stable & adequate Neuraxial Anesthesia: was administered and sensory block is resolving Anesthetic Complications: no major complications apparent and Pt Satisfied with anesthetic care
--- NOTE | 2022-02-25 17:56 | XRay Report ---
XR knee RT 1 or 2V routine CLINICAL HISTORY: right TKA. COMPARISON STUDY: 1 3 ACT TECHNIQUE: 2 right knee views FINDINGS: The patient is status post total knee replacement. The prosthetic components are in anatomi c alignment with no acute abnormality seen. Air is present within the soft tissues from the procedure . Skin beth are seen anteriorly. IMPRESSION: 1. Status post total knee replacement ACT 112: Negative or not required by law. Electronically signed by: Madhu June M.D. 02/25/2022 5:55 PM
[2022-02-25] MEDS ORDERED: METOCLOPRAMIDE HCL INJ 5 MG/ML 2 ML VIAL IV PRN (18:04)
[2022-02-25] MEDS ORDERED: MAGNESIUM HYDROXIDE SUSP 30 ML UDC PO PRN (18:04)
[2022-02-25] MEDS ORDERED: NALOXONE HCL 0.4 MG/1 ML VIAL/CARP IV PRN (18:04)
[2022-02-25] MEDS ORDERED: diphenhydrAMINE Capsule 25 MG CAP PO PRN (18:04)
[2022-02-25] MEDS ORDERED: oxyCODONE HCL IR 5 MG TAB (IMMEDIATE RELEASE) PO PRN (18:04)
[2022-02-25] MEDS ORDERED: ALBUTEROL HFA 8 GM INHALER INH PRN (18:04)
[2022-02-25] MEDS ORDERED: ONDANSETRON 4 MG OD TAB PO PRN (18:04)
[2022-02-25] MEDS ORDERED: ALUMINUM/MAGNESIUM SUSP 30 ML UDC PO PRN (18:04)
[2022-02-25] MEDS ORDERED: HYDROmorphone INJ 0.5 MG/0.5 ML SYR IV PRN (18:04)
[2022-02-25] MEDS ORDERED: bisacodyL 10 MG SUPP PR PRN (18:04)
[2022-02-25] MEDS ORDERED: ONDANSETRON INJ 2 MG/ML 2 ML VIAL IV PRN (18:04)
[2022-02-25] MEDS: KETOROLAC 30 MG/ML VIAL IV SCH (19:16)
[2022-02-25] MEDS: Scopolamine CHECK PATCH PLACEMENT SCH (19:16)
[2022-02-25] MEDS: SODIUM CHLORIDE 0.9% 1000ML 1,000 ML IV SCH (19:21)
[2022-02-25] MEDS ORDERED: lisinopril 40 MG TAB PO ONE (20:45)
[2022-02-25] MEDS ORDERED: SENNA 8.6 MG TAB PO SCH (21:00)
[2022-02-25] MEDS: ACETAMINOPHEN 500 MG TAB PO SCH (21:02)
[2022-02-25] MEDS: DOCUSATE SODIUM 100 MG CAP PO SCH (21:03)
[2022-02-25] MEDS: TAPENTADOL HCL ER 50 MG TABCR PO SCH (21:07)
[2022-02-25] MEDS: ceFAZolin 2000MG 2,000 MG/15 ML SYR IV SCH (22:55)
[2022-02-25] MEDS ORDERED: TRANEXAMIC ACID / 0.7% NACL 1,000 MG/100 ML BAG IV SCH (23:15)
[2022-02-26] MEDS: Scopolamine CHECK PATCH PLACEMENT SCH ×2 (00:24→07:50)
[2022-02-26] MEDS: KETOROLAC 30 MG/ML VIAL IV SCH ×3 (00:27→12:05)
[2022-02-26] MEDS ORDERED: COUGH DROP (SUGAR FREE) LOZ 24 LOZ/1 BOX BUCCAL ONE (01:04)
[2022-02-26] MEDS: SODIUM CHLORIDE 0.9% 1000ML 1,000 ML IV SCH (05:16)
[2022-02-26] MEDS: ceFAZolin 2000MG 2,000 MG/15 ML SYR IV SCH (06:10)
[2022-02-26] MEDS: ACETAMINOPHEN 500 MG TAB PO SCH ×2 (07:52→16:08)
[2022-02-26] MEDS: DOCUSATE SODIUM 100 MG CAP PO SCH (07:53)
[2022-02-26] MEDS: TAPENTADOL HCL ER 50 MG TABCR PO SCH (07:53)
[2022-02-26] MEDS ORDERED: ASCORBIC ACID 500 MG TAB PO SCH (08:00)
[2022-02-26] MEDS ORDERED: dexAMETHasone 10 MG in SYRINGE 0 ML IV SCH (08:00)
[2022-02-26] MEDS ORDERED: DOCUSATE SODIUM/SENNA 50/8.6MG TAB PO SCH (09:00)
[2022-02-26] MEDS ORDERED: FUROSEMIDE 20 MG TAB PO SCH (09:00)
[2022-02-26] MEDS ORDERED: NICOTINE 14 MG/24 HR PATCH TD SCH (09:00)
[2022-02-26] MEDS ORDERED: FLUTICASONE/VILANTEROL 200/25MCG 14 PUFFS/INHALER INH SCH (09:00)
[2022-02-26] MEDS ORDERED: lisinopril 40 MG TAB PO SCH (09:00)
[2022-02-26] MEDS ORDERED: MULTIVITAMIN TAB PO SCH (09:00)
[2022-02-26 09:08] LABS: Hematocrit (blood only) 38.5 % (37-47); Hemoglobin 13.2 g/dL (12.0-16.0); Mean Corpuscular Hemoglobin 32.4 pg (25-34); Mean Corpuscular Hgb Conc 34.3 g/dL (32-36); Mean Corpuscular Volume 94.6 fL (80-100); Mean Platelet Volume 10.2 fL (7.4-10.4); Platelet Count 219 K/uL (130-400); RDW Coefficient of Variation 14.4 % (11.5-14.5); RDW Standard Deviation 49.9 fL (36.4-46.3); Red Blood Count 4.07 M/uL (4.2-5.4); White Blood Count 8.46 K/uL (4.8-10.8)
[2022-02-26 09:34] LABS: Calcium 8.2 mg/dl (8.5-10.1); Creatinine Clr Calc Pharmacy 115.3 ml/min; Est GFR (African American) 103.3 ml/min; Est GFR (Non-African American) 89.1 ml/min; Potassium 3.9 mmol/L (3.5-5.1)
--- NOTE | 2022-02-26 14:53 | Progress Notes ---
DATE OF SERVICE: 02/26/2022. SUBJECTIVE: A 56-year-old white female postoperative day 1 from a right knee replacement. She is do ing pretty well. Having pain, but controlled. No chest pain or shortness of breath. Therapy went p retty well. Not feeling dizzy or lightheaded. She feels like she is ready to go home. OBJECTIVE: VITAL SIGNS: Temperature is 36.9. Vital signs are stable. GENERAL: Shows a pleasant middle-aged female. She is sitting up in bed and looks reasonably comfort able. LUNGS: Clear to auscultation. HEART: Regular rate and rhythm. ABDOMEN: Soft, nontender, nondistended. EXTREMITIES: Grossly neurovascularly intact except as follows. Examination of the right leg reveals the dressing to be clean, dry and intact. She can dorsiflex and plantarflex her foot appropriately. She can do a straight leg raise with quite a bit of effort. Sh e is neurologically intact. LABORATORY DATA: Hemoglobin is 13.2. Hematocrit is 38.5. Electrolytes are stable. Sodium just a l ittle low at 131. ASSESSMENT: A 56-year-old white female postoperative day 1 from a right knee replacement, doing reas onably well. Pain has been reasonably well controlled. She is neurologically intact. She did prett y well in therapy. She is hoping to go home. PLAN: 1. DVT prophylaxis includes thigh-high TEDs, SCDs and back on her Eliquis. She will be on a prophyl actic dose today and a therapeutic dose when she goes home. 2. PT/OT. She can weightbear as tolerated on the right lower extremity. 3. Pain control, doing okay with current pain regimen. 4. Disposition: Plan to discharge to home with some home health later today. Job ID: [id number]
[2022-02-26] MEDS ORDERED: APIXABAN 2.5 MG TAB PO SCH (18:00)
== END 2022-02-26 16:50 | disposition home health service (06) ==
LOC: ASU 10:54 → PACUINP 10:54 → 3N 18:53